=== PATIENT | male | born 1935 | race Caucasian/White ===

== ENCOUNTER → 2017-08-10 | Outpatient (CLI) | payer MEDICARE, OTHER ==
[~2017-08-10] MED LIST: ALPR.25 PO; ALPR.5 PO; ASPI81CH PO; Augmentin 875-1 EACH PO; CARV3.125 PO; CYCL10 PO; FENT50TP TOP; FENT75TP TOP; HYDACE10B PO; LIDO700A20 TOP; METPRE4DP PO; NEBI5 PO; Norco 10-325 T1 EACH PO; PRAV20 PO; SOMA250 MG; Stool Softener240 MG PO; WARF2 PO; WARF3 PO; WARF5 PO
[2017-08-10 10:25] LABS: BASOPHILS ABSOLUTE AUTO 0.07 K/mm3 (0.00-0.23); BASOPHILS PERCENT AUTO 1 % (0-2); EOSINOPHILS ABSOLUTE AUTO 0.16 K/mm3 (0.00-0.68); EOSINOPHILS PERCENT AUTO 2 % (0-6); Hematocrit 51.2 % (37.0-53.0); Hemoglobin 17.9 g/dL (13.5-17.5); IMMATURE GRAN ABSOLUTE AUTO 0.04 K/mm3 (0.00-0.10); IMMATURE GRAN PERCENT AUTO 0 % (0-1); LYMPHOCYTES ABSOLUTE AUTO 1.89 K/mm3 (0.84-5.20); LYMPHOCYTES PERCENT AUTO 20 % (21-46); MONOCYTES ABSOLUTE AUTO 0.93 K/mm3 (0.16-1.47); MONOCYTES PERCENT AUTO 10 % (4-13); Mean Corpuscular HGB 30.3 pg (26.0-34.0); Mean Corpuscular Volume 87 fL (80-100); Mean Platelet Volume 11.5 fL (9.1-12.4); NEUTROPHILS ABSOLUTE AUTO 6.61 K/mm3 (1.96-9.15); NEUTROPHILS PERCENT AUTO 68 % (41-73); Platelet Count 141 K/mm3 (150-400); RDW Coefficient Variation 14.3 % (11.7-14.2); RDW Standard Deviation 45.6 fL (35.1-46.3); Red Blood Cell Count 5.91 M/mm3 (4.30-5.90)
[2017-08-10 12:06] LABS: Anion Gap 8 mmol/L (6-16); Blood Urea Nitrogen 15 mg/dL (8-24); Bun/Creatinine Ratio 13.4 (12.0-20.0); CO2, Blood 29 mmol/L (21-32); Calcium, Blood 9.5 mg/dL (8.5-10.1); Chloride, Blood 102 mmol/L (98-108); Creatinine, Blood 1.12 mg/dL (0.60-1.20); Glomerular Filtration Rate >60 (60-); Glucose, Blood 116 mg/dL (70-99); Potassium, Blood 4.5 mmol/L (3.5-5.5); Sodium, Blood 139 mmol/L (136-145)
== END ==
LOC: LAB SHORT 10:20 → LAB EV 10:20
PROVIDERS: Physician Assistant Surgical
DX: R42 Dizziness and giddiness (principal)
CPT/HCPCS: 80048; 85025

== ENCOUNTER 2018-04-01 07:07 | Inpatient (IN) | payer MEDICARE, OTHER ==
[2018-03-31 11:02] LABS: International Normalized Ratio 1.25; Prothrombin Time Results 12.7 Sec (9.7-11.5)
[~2018-04-01] VITALS: Ht 180.3 cm; Wt 95.2 kg
[~2018-04-01 07:07] MED LIST changes: +GABA300 PO; +OXYC5 PO; +Zoloft100 MG PO
[2018-04-01] MEDS ORDERED: ENOX100I SC (08:52)
[2018-04-01 10:15] LABS: International Normalized Ratio 1.2; Prothrombin Time Results 12.2 Sec (9.7-11.5)
[2018-04-02 05:16] LABS: BASOPHILS ABSOLUTE AUTO 0.04 K/mm3 (0.00-0.23); BASOPHILS PERCENT AUTO 0 % (0-2); EOSINOPHILS ABSOLUTE AUTO 0.21 K/mm3 (0.00-0.68); EOSINOPHILS PERCENT AUTO 2 % (0-6); Hematocrit 38.7 % (37.0-53.0); Hemoglobin 12.6 g/dL (13.5-17.5); IMMATURE GRAN ABSOLUTE AUTO 0.03 K/mm3 (0.00-0.10); IMMATURE GRAN PERCENT AUTO 0 % (0-1); LYMPHOCYTES ABSOLUTE AUTO 1.48 K/mm3 (0.84-5.20); LYMPHOCYTES PERCENT AUTO 14 % (21-46); MONOCYTES ABSOLUTE AUTO 1.13 K/mm3 (0.16-1.47); MONOCYTES PERCENT AUTO 11 % (4-13); Mean Corpuscular HGB 29.2 pg (26.0-34.0); Mean Corpuscular HGB Conc 32.6 g/dL (31.5-36.5); Mean Corpuscular Volume 90 fL (80-100); NEUTROPHILS ABSOLUTE AUTO 7.63 K/mm3 (1.96-9.15); NEUTROPHILS PERCENT AUTO 73 % (41-73); Platelet Count 107 K/mm3 (150-400); RDW Coefficient Variation 14.7 % (11.7-14.2); RDW Standard Deviation 48.8 fL (35.1-46.3); Red Blood Cell Count 4.31 M/mm3 (4.30-5.90); White Blood Cell Count 10.52 K/mm3 (4.00-11.30)
[2018-04-02 05:32] LABS: Anion Gap 7 mmol/L (6-16); Blood Urea Nitrogen 17 mg/dL (8-24); Bun/Creatinine Ratio 17.7 (12.0-20.0); CO2, Blood 27 mmol/L (21-32); Calcium, Blood 8.5 mg/dL (8.5-10.1); Chloride, Blood 109 mmol/L (98-108); Creatinine, Blood 0.96 mg/dL (0.60-1.20); Glomerular Filtration Rate >60 (60-); Glucose, Blood 90 mg/dL (70-99); Magnesium, Blood 1.8 mg/dL (1.6-2.4); Potassium, Blood 4.2 mmol/L (3.5-5.5); Sodium, Blood 143 mmol/L (136-145)
[2018-04-03 06:00] LABS: International Normalized Ratio 1.12; Prothrombin Time Results 11.5 Sec (9.7-11.5)
[2018-04-04 06:08] LABS: International Normalized Ratio 1.23; Prothrombin Time Results 12.5 Sec (9.7-11.5)
== END 2018-04-04 15:20 | disposition home or self-care (01) | DRG 470 ==
LOC: ORSCMMR 07:07 → PRE IP 10:30 → ORSCMMR 10:30 → PRE IP 10:45 → EDSTATUS 10:45 → ORSCMMR 13:25 → SURS 13:25
PROVIDERS: Anesthesiology; Orthopaedic Surgery
PROC: 0SRD0J9 Replacement of Left Knee Joint with Synthetic Substitute, Cemented, Open Approach (ICD-10-PCS; principal; 2018-04-01 10:30)
DX: M17.12 Unilateral primary osteoarthritis, left knee (principal); J44.9 Chronic obstructive pulmonary disease, unspecified; I11.0 Hypertensive heart disease with heart failure; I50.9 Heart failure, unspecified; E78.5 Hyperlipidemia, unspecified; D45 Polycythemia vera; Z79.01 Long term (current) use of anticoagulants; Z79.82 Long term (current) use of aspirin; Z79.899 Other long term (current) drug therapy; Z87.891 Personal history of nicotine dependence; Z95.1 Presence of aortocoronary bypass graft; Z95.2 Presence of prosthetic heart valve
CPT/HCPCS: 36415; 73560-LT; 80048; 83735; 85025; 85610; 85730; 88300; 97110; 97116; 97161; 97530; C1713; C1776; G8978; G8979; G8980; J0171; J0690; J0735; J1650; J1885; J2250; J2795; J3010; J7120

== ENCOUNTER 2019-06-13 10:52 | Emergency (ER) | payer MEDICARE, OTHER ==
[~2019-06-13] VITALS: Ht 175.3 cm; Wt 97.5 kg
[~2019-06-13 10:52] MED LIST changes: +ENOX100I SC
[2019-06-13 11:38] LABS: BASOPHILS ABSOLUTE AUTO 0.04 K/mm3 (0.00-0.23); BASOPHILS PERCENT AUTO 0 % (0-2); EOSINOPHILS ABSOLUTE AUTO 0.15 K/mm3 (0.00-0.68); EOSINOPHILS PERCENT AUTO 2 % (0-6); Hematocrit 44.6 % (37.0-53.0); IMMATURE GRAN ABSOLUTE AUTO 0.02 K/mm3 (0.00-0.10); IMMATURE GRAN PERCENT AUTO 0 % (0-1); LYMPHOCYTES ABSOLUTE AUTO 1.52 K/mm3 (0.84-5.20); LYMPHOCYTES PERCENT AUTO 15 % (21-46); MONOCYTES ABSOLUTE AUTO 1.48 K/mm3 (0.16-1.47); MONOCYTES PERCENT AUTO 15 % (4-13); Mean Corpuscular HGB 30.4 pg (26.0-34.0); Mean Corpuscular HGB Conc 33.6 g/dL (31.5-36.5); Mean Corpuscular Volume 91 fL (80-100); Mean Platelet Volume 12.2 fL (9.1-12.4); NEUTROPHILS ABSOLUTE AUTO 6.82 K/mm3 (1.96-9.15); NEUTROPHILS PERCENT AUTO 68 % (41-73); Platelet Count 115 K/mm3 (150-400); RDW Coefficient Variation 13.9 % (11.7-14.2); RDW Standard Deviation 46.4 fL (35.1-46.3); Red Blood Cell Count 4.93 M/mm3 (4.30-5.90); White Blood Cell Count 10.03 K/mm3 (4.00-11.30)
[2019-06-13 11:56] LABS: International Normalized Ratio 2.66; Prothrombin Time Results 25.8 Sec (9.7-11.5)
[2019-06-13 12:04] LABS: Alanine Aminotransfer (ALT/SGP 24 U/L (12-78); Albumin, Blood 3.7 g/dL (3.4-5.0); Albumin/Globulin Ratio 0.9 (0.8-1.8); Alk Phos 95 U/L (50-136); Anion Gap 5 mmol/L (6-16); Aspartate Aminotrans (AST/SGOT 24 U/L (12-37); Bilirubin, Total 0.8 mg/dL (0.1-1.0); Blood Urea Nitrogen 15 mg/dL (8-24); Bun/Creatinine Ratio 21.5 (12.0-20.0); CO2, Blood 28 mmol/L (21-32); Calcium, Blood 9.4 mg/dL (8.5-10.1); Chloride, Blood 107 mmol/L (98-108); Globulin, Blood 3.9 g/dL (2.2-4.0); Glomerular Filtration Rate >60 (60-); Glucose, Blood 103 mg/dL (70-99); Potassium, Blood 4.1 mmol/L (3.5-5.5); Sodium, Blood 140 mmol/L (136-145); Total Protein, Blood 7.6 g/dL (6.4-8.2); Troponin I <0.015 ng/mL (0.000-0.040)
[2019-06-13] MEDS ORDERED: Robaxin-750750 MG PO (13:31)
== END 2019-06-13 14:00 | disposition home or self-care (01) ==
LOC: ER 10:52
PROVIDERS: Physician Assistant
DX: S16.1XXA Strain of muscle, fascia and tendon at neck level, initial encounter (principal); M50.10 Cervical disc disorder with radiculopathy, unspecified cervical region; I25.2 Old myocardial infarction; I10 Essential (primary) hypertension; Z87.891 Personal history of nicotine dependence; Z79.899 Other long term (current) drug therapy; X58.XXXA Exposure to other specified factors, initial encounter
CPT/HCPCS: 36415; 70450; 71046; 72040; 80053; 83880; 84484; 85025; 85610; 93005; 93010; 99284-25

== ENCOUNTER 2019-11-13 08:12 | Day surgery (SDC) | payer MEDICARE, OTHER ==
[~2019-11-13] VITALS: Ht 175.3 cm; Wt 96.3 kg
[~2019-11-13 08:12] MED LIST changes: +BACL10 PO; +CLOP75 PO; +OXYC15ER PO; +Pravachol40 MG PO; +Robaxin-750750 MG PO; +SERT25 PO
--- NOTE | 2019-11-13 16:57 | NUR ---
discharge gone over with pt, pt verbalizes understanding. both sites stable, left pedal and right groin. instructions given on what to do if bleeding should occur. saline lock out with catheter intact. pt to private vehicle per w/c with one staff.
== END 2019-11-13 23:07 | disposition home or self-care (01) ==
LOC: MHTC 08:12
DX: I70.212 Atherosclerosis of native arteries of extremities with intermittent claudication, left leg (principal)
CPT/HCPCS: 37228; 37232; 75710; 75716; 75774; 76937; 85347; 99152; 99153; C1725; C1760; C1769; C1887; C1894; J1644; J2250; J3010; J7030; Q9967

== ENCOUNTER 2020-04-20 09:55 | Inpatient (IN) | payer MEDICARE, OTHER ==
[~2020-04-20] VITALS: Ht 182.9 cm; Wt 94.5 kg
[~2020-04-20 09:55] MED LIST changes: +Aspir 8181 MG PO; +CEPH500 PO; -CLOP75 PO; -WARF2 PO; +WARF4 PO
[2020-04-20] MEDS ORDERED: NEBI5 PO (10:10)
[2020-04-20] MEDS ORDERED: LOSARTAN POTASS25 M2 PO (10:10)
[2020-04-20] MEDS ORDERED: ROXICODONE15 MG PO (10:10)
[2020-04-20] MEDS ORDERED: PRAVACHOL20 MG PO (10:11)
[2020-04-20 11:17] LABS: BASOPHILS ABSOLUTE AUTO 0.09 K/mm3 (0.00-0.23); BASOPHILS PERCENT AUTO 1 % (0-2); EOSINOPHILS ABSOLUTE AUTO 0.47 K/mm3 (0.00-0.68); EOSINOPHILS PERCENT AUTO 4 % (0-6); Hematocrit 44.4 % (37.0-53.0); Hemoglobin 14.6 g/dL (13.5-17.5); IMMATURE GRAN ABSOLUTE AUTO 0.11 K/mm3 (0.00-0.10); IMMATURE GRAN PERCENT AUTO 1 % (0-1); LYMPHOCYTES PERCENT AUTO 15 % (21-46); MONOCYTES ABSOLUTE AUTO 1.49 K/mm3 (0.16-1.47); MONOCYTES PERCENT AUTO 14 % (4-13); Mean Corpuscular HGB 29.1 pg (26.0-34.0); Mean Corpuscular HGB Conc 32.9 g/dL (31.5-36.5); Mean Corpuscular Volume 88 fL (80-100); NEUTROPHILS PERCENT AUTO 65 % (41-73); Platelet Count 144 K/mm3 (150-400); RDW Standard Deviation 48.8 fL (35.1-46.3); Red Blood Cell Count 5.02 M/mm3 (4.30-5.90); White Blood Cell Count 10.76 K/mm3 (4.00-11.30)
[2020-04-20 11:30] LABS: International Normalized Ratio 2.87; Prothrombin Time Results 28.9 Sec (9.7-11.5)
[2020-04-20 11:34] LABS: Alanine Aminotransfer (ALT/SGP 22 U/L (12-78); Albumin, Blood 3.4 g/dL (3.4-5.0); Alk Phos 78 U/L (50-136); Anion Gap 5 mmol/L (6-16); Aspartate Aminotrans (AST/SGOT 20 U/L (12-37); Bilirubin, Total 0.5 mg/dL (0.1-1.0); Blood Urea Nitrogen 23 mg/dL (8-24); Bun/Creatinine Ratio 28.3 (12.0-20.0); CO2, Blood 28 mmol/L (21-32); Calcium, Blood 8.9 mg/dL (8.5-10.1); Chloride, Blood 109 mmol/L (98-108); Creatinine, Blood 0.81 mg/dL (0.60-1.20); Globulin, Blood 3.3 g/dL (2.2-4.0); Glomerular Filtration Rate >60 (60-); Glucose, Blood 109 mg/dL (70-99); Potassium, Blood 4.6 mmol/L (3.5-5.5); Sodium, Blood 142 mmol/L (136-145); Total Protein, Blood 6.7 g/dL (6.4-8.2)
[2020-04-20] MEDS ORDERED: EZETIMIBE10 M3 PO (12:54)
[2020-04-20] MEDS ORDERED: Prednisone10 MG (12:54)
[2020-04-20] MEDS ORDERED: CLOP75 PO (12:57)
[2020-04-20] MEDS ORDERED: DULOXETINE HCL60 M1 PO (12:57)
[2020-04-20] MEDS ORDERED: DOCU100 PO (13:29)
--- NOTE | 2020-04-20 17:41 | NUR ---
SUMMARY BEAVER, MEDICATED WITH IV MORPHINE FOR PAIN, DENIES ANY OTHER DISCOMFORT, PT'S DAUGHTER WAS HERE, TOOK PT'S MEDS AND [facility] HOME, ORIENTED TO ROOM AND CALL SYSTEM, NO ACUTE CHANGES THIS SHIFT.
[2020-04-21 04:43] LABS: BASOPHILS ABSOLUTE AUTO 0.08 K/mm3 (0.00-0.23); BASOPHILS PERCENT AUTO 1 % (0-2); EOSINOPHILS ABSOLUTE AUTO 0.43 K/mm3 (0.00-0.68); EOSINOPHILS PERCENT AUTO 4 % (0-6); Hematocrit 44.7 % (37.0-53.0); Hemoglobin 14.4 g/dL (13.5-17.5); IMMATURE GRAN ABSOLUTE AUTO 0.11 K/mm3 (0.00-0.10); IMMATURE GRAN PERCENT AUTO 1 % (0-1); LYMPHOCYTES ABSOLUTE AUTO 2.36 K/mm3 (0.84-5.20); LYMPHOCYTES PERCENT AUTO 21 % (21-46); MONOCYTES ABSOLUTE AUTO 1.68 K/mm3 (0.16-1.47); MONOCYTES PERCENT AUTO 15 % (4-13); Mean Corpuscular HGB 28.9 pg (26.0-34.0); Mean Corpuscular HGB Conc 32.2 g/dL (31.5-36.5); Mean Corpuscular Volume 90 fL (80-100); Mean Platelet Volume 10.7 fL (9.1-12.4); NEUTROPHILS ABSOLUTE AUTO 6.59 K/mm3 (1.96-9.15); NEUTROPHILS PERCENT AUTO 59 % (41-73); Platelet Count 152 K/mm3 (150-400); RDW Coefficient Variation 14.9 % (11.7-14.2); RDW Standard Deviation 48.2 fL (35.1-46.3); Red Blood Cell Count 4.98 M/mm3 (4.30-5.90); White Blood Cell Count 11.25 K/mm3 (4.00-11.30)
[2020-04-21 04:54] LABS: Anion Gap 6 mmol/L (6-16); Blood Urea Nitrogen 24 mg/dL (8-24); Bun/Creatinine Ratio 28.8 (12.0-20.0); CO2, Blood 29 mmol/L (21-32); Chloride, Blood 102 mmol/L (98-108); Creatinine, Blood 0.83 mg/dL (0.60-1.20); Glomerular Filtration Rate >60 (60-); Glucose, Blood 109 mg/dL (70-99); Potassium, Blood 4.7 mmol/L (3.5-5.5); Sodium, Blood 137 mmol/L (136-145)
[2020-04-21 04:56] LABS: International Normalized Ratio 3.24; Prothrombin Time Results 32.4 Sec (9.7-11.5)
--- NOTE | 2020-04-21 05:34 | NUR ---
SHIFT SUMMARY: LEFT HIP FX A&OX4. VITALS ARE WNL AND IS ON ROOM AIR. HE HAS BEEN NPO SINCE MIDNIGHT. HE HAS BEEN ABLE TO VOID AND WAS ADEQUATELY EATING BEFORE MIDNIGHT. PAIN IS MANAGED BY 1 CARMEN. HE IS VERY [place] AND NEEDS TO BE TALKED TO DIRECTLY FACE TO FACE FOR HIM TO UNDERSTAND. CALL LIGHT IS WITHIN REACH AND BED IS AT LOWEST POINT. HE IS ON TELE AND WAS AT [facility]HY[facility] @ 73 EARLY IN THE SHIFT. PLAN IS FOR HIM TO GO TO SURGERY TODAY TO FIX HIS HIP. WILL CONTINUE TO MONITOR UNTIL DAYSHIFT NURSE COMES TO RECIEVE REPORT.
--- NOTE | 2020-04-21 13:19 | NUR ---
PT RESTING QUIETLY. RESP E/U. ALARM IN PLACE.
--- NOTE | 2020-04-21 17:01 | NUR ---
SHIFT SUMMARY L HIP FX, A/O X4, INTERMITTENTLY SLEEPY BUT EASY TO WAKE, VSS, PAIN MANAGED PER EMAR, DIET CHANGED TO REGULAR DUE TO SURGERY BEING HELD ANOTHER DAY TO ALLOW INR TO COME DOWN CLOSER TO 2.0. TOLERATING PO, VOIDING WELL, PULLED IV IN L HAND WHILE SLEEPING, NEW IV INSERTED IN R FOREARM TOLERATED WELL. SURGEON TO CHANGE TO DR ALFORD TOMORROW, FAMILY MEMBER IN ROOM WHEN DR PATTERSON DISCUSSED PLAN W/ PT. CALL LIGHT IN REACH, WILL CONTINUE TO MONITOR AND REPORT TO ONCOMING NOC RN.
[2020-04-22 04:26] LABS: International Normalized Ratio 1.66; Prothrombin Time Results 17.3 Sec (9.7-11.5)
--- NOTE | 2020-04-22 05:01 | NUR ---
SHIFT SUMMARY PT A/OX3-4. FORGETFUL/IMPULSIVE AT TIMES. BED ALARM ON DURING THE SHIFT - PT HAS SET OFF BED ALARM MULTIPLE TIMES ATTEMPTING TO GET OUT OF BED. PT HAS BEEN NPO SINCE MIDNIGHT FOR SURGERY TODAY. IV FLUIDS INFUSING PER ORDERS. PAIN MANAGED WITH PO PAIN MED AND IV MORPHINE FOR BREAKTHROUGH PAIN. PT RESTING IN BED AT THIS TIME WITH CALL LIGHT IN REACH.
--- NOTE | 2020-04-22 15:03 | NUR ---
INTO SDS FROM SURGICAL FLOOR.ADMISSION TO UNIT STARTED. Patient confirms NPO status and agrees with scheduled surgery.DAUGHTER AT BEDSIDE
--- NOTE | 2020-04-22 17:12 | NUR ---
SHIFT SUMMARY L FEM FX, A/O X 4, VSS, NPO FOR SURGERY, VOIDING WELL, PAIN CONTROLLED PER EMAR, DAY SURGERY PICKUD UP PT @ 1503. WILL CONTINUE TO MONITOR AND REPORT TO ONCOMING NOC RN.
--- NOTE | 2020-04-22 18:39 | NUR ---
PT RETURNED TO ROOM FROM PACU, PT STABLE, P/O VITALS STARTED, FAMILY UPDATED
--- NOTE | 2020-04-23 01:19 | NUR ---
IV PULLED ABOUT 0100 PT FOUND TO HAVE DISCONNECTED IV FROM IV HUB. BLOOD ON BED AND POOLING ON FLOOR. IV HAD BEEN CONNECTED WHEN ABX WERE GIVEN, AROUND 2330. LINENS CHANGED, PT CLEANED. PHYSICIAN NOTIFIED - H&H ORDERED FOR AM LABS. VS CONSISTENT WITH PREVIOUS VS.
[2020-04-23 03:17] LABS: Hemoglobin 14.6 g/dL (13.5-17.5)
--- NOTE | 2020-04-23 03:29 | NUR ---
PT TRANSFERRED TO ROOM 215 AT THIS TIME
--- NOTE | 2020-04-23 04:28 | NUR ---
SHIFT SUMMARY PT ALERT, ORIENTED X3. FORGETFUL/IMPULSIVE AT TIMES. PAIN MANAGED WITH PO AND IV PAIN MEDICATION. PT RESPOSITIONED MULT TIMES DURING THE SHIFT. TELE SHOWS SR OVERNIGHT. PT DISCONNECTED IV DURING THE NIGHT, SOMETIME BETWEEN 2330 AND 0045, AND LOST LARGE AMOUNT OF BLOOD. SEE PREVIOUS NOTE. H&H THIS MORNING UNCHANGED FROM YESTERDAY MORNING. NEW IV PLACED ON R ARM AND WRAPPED WELL WITH COBAN AND SWAPNA. PT MOVED FROM ROOM 223 TO ROOM 215 BED ALARM WAS SET OFF MUTIPLE TIMES. PT TOLERATING PO INTAKE W/O NAUSEA. VOIDING USING URINAL. CALL LIGHT IN REACH.
--- NOTE | 2020-04-23 16:25 | NUR ---
SHIFT SUMMARY PATIENT UP TO CHAIR WITH PT TODAY. PAIN TOLERABLE WITH PO PAIN MEDS. SLEPT WELL AFTER LUNCH. VSS. L HIP DRESSING D&I. CIRC CHECKS WNL. DAUGHTER IN TO SEE. PLAN FOR D/C TO SNF TOMORROW.
[2020-04-24 04:19] LABS: International Normalized Ratio 1.18; Prothrombin Time Results 12.5 Sec (9.7-11.5)
--- NOTE | 2020-04-24 06:02 | NUR ---
CARE OF THIS PT WAS TRANSFERRED TO [place] @ 1999.WITH REPORT, I WAS ADVISED PT TO BE RECEIVING CARMEN 15MG PO REPORTED THIS IS PTS BASELINE DOSE.PT HAS APPEARED SLEEPING AT TIMES AND NOT OPENING EYES WHEN INITIALLY SPOKEN TO.SLOW TO OPEN EYES, BUT STATES HAS NOT BEEN SLEEPING.PT ORDERS FOR CARMEN ARE Q 4 HR PRN BUT PT DISAGREES STATING THEY ARE ORDERED Q3 HRS .I DISCUSSED ORDER WITH PT WELL SHOWING HIM ORDERS.PT ALSO VERB ADVISED ME HE SLEPT WELL AFTER THE RESTORIL.WHEN ENTERED PT ROOM TO MEDICATE FOR PAIN PER PRIOR REQUEST, PT APPEARS SLEEPING. SPOKE HIS NAME WITHOUT RESPONSE. PT RESPONDED TO TOUCH OF FOOT.CONFIMED HE WANTED CARMEN 15 MG PO.RESP APPEAR EVEN AND UNLABORED.
--- NOTE | 2020-04-24 13:40 | NUR ---
REPORT TO AMIE MUNIZ ATTEMPTED TO CALL IN FOR REPORT. I SPOKE TO THE STAFF AND STATES THAT NURSE IS UNAVAILABLE AT THIS TIME. SHE WILL HAVE A NURSE CALL BACK TO OUR UNIT. NOTIFIED THAT PT LEAVES AT 1400 IN THE HOSPITAL W/ TRANSPORT. WAITING FOR A CALL BACK.
--- NOTE | 2020-04-24 14:15 | NUR ---
REPORT TO [facility] RECIEVED CALL BACK FROM ELAN FROM [facility] AT 1210. NOTIFIED THAT PT IS A0X4. PT DENIES SOB, CHEST PAIN/PRESSURE, NUMBNESS AND NO TINGLING SENSATION. PT HAS L FEMUR FX, S/P PINNING ON L HIP W/ CDI AQUACEL DRESSING. 3 EXTRA DRESSING, HAND CARRY SCRIPT FOR OXY, AND DISCHARGE NOTES AT [facility] FOR PATIENT TO TAKE HOME/SNF. PT LLE IS TOETOUCH WT BEARING. I ALSO MENTIONED WARFARIN RESUMED LAST NIGHT, TO MONITOR INR. PT TOLERATING PO INTAKE, DENIES NAUSEA AND VOMITING. PT'S LAST BM, YESTERDAY X1. PT TAKES OXYCODONE 15MG EVERY 4 HRS FOR PAIN NEEDED. VSS. PT WEARING HIS DENTURES. 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 BELONGINGS ON A PLASTIC BAG.
--- NOTE | 2020-04-24 15:24 | NUR ---
LOW TEMPURATURE TEMP CHECKED BEFORE SCHEDULED DISCARGE TO [facility]. TEMP SUB NORMAL AT 95.4 TEMPORAL. ALSO CHECKED AXILLARY AND ORAL BOTH TEMPS SUB NORMAL. TEMPORTAL THERMOMETER WAS CLEANED BEFORE USE. PT IS SLIGHTLY DIAPHORETIC, PALE AND COOL TO THE TOUCH. OTHER VSS BP 124/69, HR 75, RR 16 AND O2 SATURATION 93% ON RA. PT PROVIDED WITH WARM BLANKETS, HOT FLUIDS AND FOOD, THERMOSTAT ALSO INCREASED. DR. MCDONOUGH NOTIFIED HE REQUESTED PT BE PROVIDED WITH WARM BLANKETS AND ASSESS TEMP IN APPROXIMATLEY 1/2 HOUR.
--- NOTE | 2020-04-24 16:30 | NUR ---
TEMP RE-CHECK TEMPURATURE WAS RE-EVALUATED AT APPROXIMATELY 1605 AND IS 98.2 AFTER PT WAS WARMED. OTHER VSS BP 130/65, HR 82, 94% ON RA, RESP RATE 16. PT IS DIAPHORETIC AT TIMES, HE DENIES CHEST PAIN AND SHORTNESS OF BREATH. DR. MCDONOUGH NOTIFIED OF PT'S STATUS. [facility] NOTIFIED OF PT'S TEMPERATURES AND INTERVENTIONS TO IMPROVE TEMP. THIS RN SPOKE WITH JULIET AT [facility], SHE REPORTED SHE WOULD NOTIFY THE RN.
--- NOTE | 2020-04-24 16:46 | NUR ---
DISCHARGE SUMMARY PT DISCHARGE VIA WHEELCHAIR WITH [facility] AT 1645. PT IS ALERT AND ORIENTED X4. PT IS NOT DIAPHORETIC PRIOR TO DISCHARGE. PT DENIES CHEST PAIN/PRESSURE, SOB, NUMBNESS AND TINGLING SENSATION. PT TOLERATING PO INTAKE WELL. HE DENIES NAUSEA AND VOMITING. PT HAD A BM YESTERDAY. HE HAS PASSING FLATUS TODAY. PT 1 INCISION SITE ON LEFT HIP, AQUACEL DRESSING IS CDI. 3 EXTRA DRESSING WITH HAND CARRY SCRIPT FOR PAIN AND DISCHARGE PAPERWORK IN [place] FOR [facility]. PAIN MED IS WELL CONTROLLED BY 15MG OXY, LAST ADMINISTERED AT 1415 BY PO. PT HAS DENTURES ON, REPORTS GLASSESS AND HEARING AIDS WERE LEFT AT HOME. BELONGINGS WERE TAKEN BY HIS SON.
== END 2020-04-24 16:44 | DRG 482 ==
LOC: ER 09:55 → SURS 09:56 → ER 09:56 → SURS 09:56
PROVIDERS: Emergency Medicine; Family Medicine; Orthopaedic Surgery; ADMIT Internal Medicine
PROC: 0QSC34Z Reposition Left Lower Femur with Internal Fixation Device, Percutaneous Approach (ICD-10-PCS; principal; 2020-04-22 17:30)
DX: S72.012A Unspecified intracapsular fracture of left femur, initial encounter for closed fracture (principal); E78.5 Hyperlipidemia, unspecified; I25.10 Atherosclerotic heart disease of native coronary artery without angina pectoris; Z95.1 Presence of aortocoronary bypass graft; Z95.2 Presence of prosthetic heart valve; I11.0 Hypertensive heart disease with heart failure; I50.9 Heart failure, unspecified; Z79.01 Long term (current) use of anticoagulants; W11.XXXA Fall on and from ladder, initial encounter
CPT/HCPCS: 36415; 71045; 72100; 73502; 73700; 80048; 80053; 85014; 85018; 85025; 85610; 85730; 93005; 93010; 96374; 97110; 97162; 97166; 97530; 97535; 99285-25; A9270; C1713; C1769; G0378; J0330; J0690; J2270; J2795; J3010; J7120; U0003

== ENCOUNTER 2021-08-31 08:19 | Day surgery (SDC) | payer MEDICARE, OTHER ==
[~2021-08-31] VITALS: Ht 180.3 cm; Wt 99.0 kg
[~2021-08-31 08:19] MED LIST changes: +Acerola C500 MG PO; +CLOP75 PO; +DOCU100 PO; +DULOXETINE HCL60 M1 PO; +EZETIMIBE10 M3 PO; +LOSARTAN POTASS25 M2 PO; +NEBI10 PO; +PRAVACHOL20 MG PO; +Prednisone10 MG; +ROXICODONE15 MG PO; +TAMS.4ER PO
--- NOTE | 2021-08-31 13:55 | NUR ---
PT DRESSING SELF WITHOUT DIFF. R FEMORAL SITE REMAINS CLEAR. SOFT, NON- TENDER. NO BLEEDING OR HEMATOMA NOTED. VSS. NADN.
--- NOTE | 2021-08-31 14:20 | NUR ---
PT VERBALIZES UNDERSTANDING WRITTEN AND VERBAL ORDERS. PT DENIES QUESTIONS. VSS. NADN. PT IV DC'D. CATH INTACT. PRESSURE DSG APPLIED. R FEMORAL SITE REMAINS STABLE. PT DC TO HOME VIA WC BY DTR IN LAW./
== END 2021-08-31 14:20 | disposition home or self-care (01) ==
LOC: MHTC 08:19
DX: I70.213 Atherosclerosis of native arteries of extremities with intermittent claudication, bilateral legs (principal)
CPT/HCPCS: 76937; 99152; 99153; A9270; C1725; C1760; C1769; C1887; C1894; J1644; J2250; J3010; J7030; J7050; Q9967

== ENCOUNTER 2021-09-27 06:34 | Day surgery (SDC) | payer MEDICARE, OTHER ==
[~2021-09-27] VITALS: Ht 177.8 cm; Wt 100.0 kg
--- NOTE | 2021-09-27 11:30 | NUR ---
PT UP AND BACK FROM BATHROOM, GROIN SITE STABLE. PT DRESSED PER SELF, R GROIN SITE REMAINS STABLE. SALINE LOCK REMOVED WITH CATHETER INTACT. DISCHARGE INSTRUCTIONS REVIEWED WITH PT, VERBALIZES UNDERSTANDING OF INSTRUCTIONS. MARQUISE CALLED AND WILL BE HERE IN 15 MINUTES.
--- NOTE | 2021-09-27 11:50 | NUR ---
PT TO PRIVATE VEHICLE PER W/C WITH ONE STAFF.
== END 2021-09-27 12:13 | disposition home or self-care (01) ==
LOC: MHTC 06:34
DX: I70.213 Atherosclerosis of native arteries of extremities with intermittent claudication, bilateral legs (principal); I25.10 Atherosclerotic heart disease of native coronary artery without angina pectoris; J44.9 Chronic obstructive pulmonary disease, unspecified; I10 Essential (primary) hypertension; Z88.8 Allergy status to other drugs, medicaments and biological substances; M19.90 Unspecified osteoarthritis, unspecified site; E78.5 Hyperlipidemia, unspecified; Z95.2 Presence of prosthetic heart valve; Z96.653 Presence of artificial knee joint, bilateral
CPT/HCPCS: 37224; 37228; 75710; 76937; 99152; 99153; C1725; C1760; C1769; C1887; C1894; C2623; J1644; J2250; J3010; J7030; J7050; Q9967

== ENCOUNTER 2022-04-11 08:54 | Emergency (ER) | payer MEDICARE, OTHER ==
[~2022-04-11] VITALS: Ht 180.3 cm; Wt 97.5 kg
== END 2022-04-11 09:57 | disposition home or self-care (01) ==
LOC: ER 08:54
DX: R04.0 Epistaxis (principal); I11.0 Hypertensive heart disease with heart failure; I50.9 Heart failure, unspecified; I25.10 Atherosclerotic heart disease of native coronary artery without angina pectoris; E78.5 Hyperlipidemia, unspecified; Z79.01 Long term (current) use of anticoagulants; Z79.899 Other long term (current) drug therapy; Z88.8 Allergy status to other drugs, medicaments and biological substances; Z95.1 Presence of aortocoronary bypass graft; Z95.2 Presence of prosthetic heart valve
CPT/HCPCS: 30903; 99283-25

== ENCOUNTER 2022-04-12 11:04 | Emergency (ER) | payer MEDICARE, OTHER ==
[~2022-04-12] VITALS: Ht 180.3 cm; Wt 97.5 kg
[2022-04-12 12:35] LABS: International Normalized Ratio 4.41
== END 2022-04-12 13:19 | disposition home or self-care (01) ==
LOC: ER 11:04
PROVIDERS: Physician Assistant
DX: R04.0 Epistaxis (principal); R79.1 Abnormal coagulation profile; Z88.8 Allergy status to other drugs, medicaments and biological substances; Z79.01 Long term (current) use of anticoagulants; Z79.82 Long term (current) use of aspirin; Z79.899 Other long term (current) drug therapy
CPT/HCPCS: 30903; 36415; 85610; 99282-25

== ENCOUNTER 2022-12-05 11:56 | Emergency (ER) | payer OTHER ==
[~2022-12-05] VITALS: Ht 177.8 cm; Wt 99.8 kg
[2022-12-05 12:41] LABS: BASOPHILS ABSOLUTE AUTO 0.09 K/mm3 (0.00-0.23); BASOPHILS PERCENT AUTO 1 % (0-2); EOSINOPHILS ABSOLUTE AUTO 0.36 K/mm3 (0.00-0.68); EOSINOPHILS PERCENT AUTO 3 % (0-6); Hematocrit 41.6 % (37.0-53.0); Hemoglobin 14.1 g/dL (13.5-17.5); IMMATURE GRAN ABSOLUTE AUTO 0.07 K/mm3 (0.00-0.10); IMMATURE GRAN PERCENT AUTO 1 % (0-1); LYMPHOCYTES ABSOLUTE AUTO 1.88 K/mm3 (0.84-5.20); LYMPHOCYTES PERCENT AUTO 14 % (21-46); MONOCYTES ABSOLUTE AUTO 1.81 K/mm3 (0.16-1.47); MONOCYTES PERCENT AUTO 13 % (4-13); Mean Corpuscular HGB 30.2 pg (26.0-34.0); Mean Corpuscular HGB Conc 33.9 g/dL (31.5-36.5); Mean Corpuscular Volume 89 fL (80-100); Mean Platelet Volume 11.7 fL (9.1-12.4); NEUTROPHILS ABSOLUTE AUTO 9.36 K/mm3 (1.96-9.15); NEUTROPHILS PERCENT AUTO 69 % (41-73); Platelet Count 155 K/mm3 (150-400); RDW Coefficient Variation 14.7 % (11.7-14.2); Red Blood Cell Count 4.67 M/mm3 (4.30-5.90); White Blood Cell Count 13.57 K/mm3 (4.00-11.30)
[2022-12-05 12:50] LABS: Albumin, Blood 3.5 g/dL (3.4-5.0); Albumin/Globulin Ratio 0.9 (0.8-1.8); Bilirubin, Total 0.7 mg/dL (0.1-1.0); Bun/Creatinine Ratio 19.8 (12.0-20.0); Calcium, Blood 9.3 mg/dL (8.5-10.1); Creatinine, Blood 0.86 mg/dL (0.60-1.20); Globulin, Blood 3.7 g/dL (2.2-4.0); Total Protein, Blood 7.2 g/dL (6.4-8.2)
[2022-12-05] MEDS ORDERED: AZIT250 PO (13:28)
[2022-12-05] MEDS ORDERED: AMOCLA875 PO (13:28)
[2022-12-05 13:40] VITALS: BP 117/61
== END 2022-12-05 13:46 | disposition home or self-care (01) ==
LOC: ER 11:56
PROVIDERS: Physician Assistant
DX: J18.9 Pneumonia, unspecified organism (principal); I25.10 Atherosclerotic heart disease of native coronary artery without angina pectoris; I11.0 Hypertensive heart disease with heart failure; I50.9 Heart failure, unspecified; E78.5 Hyperlipidemia, unspecified; Z88.8 Allergy status to other drugs, medicaments and biological substances; Z79.01 Long term (current) use of anticoagulants; Z79.82 Long term (current) use of aspirin; Z79.899 Other long term (current) drug therapy
CPT/HCPCS: 71046; 80053; 83605; 83880; 84484; 85025

== ENCOUNTER 2024-01-04 20:54 | Inpatient (IN) | payer OTHER ==
[~2024-01-04] VITALS: Ht 182.9 cm; Wt 90.3 kg
[~2024-01-04 20:54] MED LIST changes: +AMOCLA875 PO; +AZIT250 PO; +CYMBALTA60 M1 PO; +FLOMAX0.4 MG PO; +FUROSEMIDE20 MG; +FUROSEMIDE40 MG PO; +JANTOVEN4 M2 PO; +K-Dur20 MEQ PO; +PRAVASTATIN SOD10 M1 PO; +SULTRIDS PO; +TRAZ50 PO; +WARFARIN PO
[2024-01-04 21:32] LABS: BASOPHILS PERCENT AUTO 1 % (0-2); EOSINOPHILS ABSOLUTE AUTO 0.04 K/mm3 (0.00-0.68); EOSINOPHILS PERCENT AUTO 0 % (0-6); Hematocrit 47.9 % (37.0-53.0); Hemoglobin 16.3 g/dL (13.5-17.5); IMMATURE GRAN ABSOLUTE AUTO 0.16 K/mm3 (0.00-0.10); IMMATURE GRAN PERCENT AUTO 1 % (0-1); LYMPHOCYTES ABSOLUTE AUTO 1.62 K/mm3 (0.84-5.20); LYMPHOCYTES PERCENT AUTO 8 % (21-46); MONOCYTES PERCENT AUTO 17 % (4-13); Mean Corpuscular HGB 30.6 pg (26.0-34.0); Mean Corpuscular Volume 90 fL (80-100); NEUTROPHILS ABSOLUTE AUTO 15.16 K/mm3 (1.96-9.15); NEUTROPHILS PERCENT AUTO 74 % (41-73); RDW Coefficient Variation 15.2 % (11.7-14.2); RDW Standard Deviation 49.8 fL (35.1-46.3); Red Blood Cell Count 5.32 M/mm3 (4.30-5.90); White Blood Cell Count 20.58 K/mm3 (4.00-11.30)
[2024-01-04 21:34] LABS: Mean Platelet Volume 11.4 fL (9.1-12.4); Platelet Count 120 K/mm3 (150-400)
[2024-01-04 21:44] LABS: Albumin, Blood 3.8 g/dL (3.4-5.0); Bilirubin, Total 1.3 mg/dL (0.1-1.0); Bun/Creatinine Ratio 19.8 (12.0-20.0); Calcium, Blood 9.1 mg/dL (8.5-10.1); Creatinine, Blood 1.06 mg/dL (0.60-1.20); Globulin, Blood 3.8 g/dL (2.2-4.0); Potassium, Blood 4.3 mmol/L (3.5-5.5); Total Protein, Blood 7.6 g/dL (6.4-8.2)
[2024-01-04] MEDS ORDERED: Morphine Sulfate 4 MG/1 ML Injection IV ONE (21:55)
[2024-01-04] MEDS ORDERED: Ondansetron HCl 2 MG / ML 2ML Vial IV ONE (21:55)
[2024-01-04] MEDS ORDERED: FentaNYL Citrate 50 MCG/ML 2 ML Injection IV PRN (22:30)
[2024-01-04] MEDS ORDERED: HYDROcodone 10-APAP 325 TAB PO PRN (22:30)
[2024-01-04] MEDS ORDERED: Acetaminophen 325 MG TABLET PO PRN (22:30)
[2024-01-04] MEDS ORDERED: Ondansetron HCl 2 MG / ML 2ML Vial IV PRN (22:35)
[2024-01-04] MEDS ORDERED: Naloxone HCl 0.4MG / ML 1ML Vial IV PRN (22:35)
[2024-01-04] MEDS ORDERED: Phytonadione 5 MG Tab PO ONE (23:00)
[2024-01-04] MEDS ORDERED: TraZODone HCl 100 MG Tab PO PRN (23:05)
[2024-01-04] MEDS ORDERED: OxyCODONE HCL 5 MG TAB PO PRN (23:05)
[2024-01-04 23:07] LABS: Anti-Xa UFH, PHA Monitoring <0.10 IU/mL; International Normalized Ratio 1.29; Prothrombin Time Results 13.5 Sec (9.7-11.5)
[2024-01-04] MEDS ORDERED: Lactated Ringer's 1,000 ML IV SCH (23:45)
[2024-01-05 00:17] LABS: Influenza A, PCR NEGATIVE (NEGATIVE); Influenza B, PCR NEGATIVE (NEGATIVE); Resp Syncytial Virus, PCR NEGATIVE (NEGATIVE); SARS-Cov-2 (COVID-19) PCR, MMC NEGATIVE (NEGATIVE)
[2024-01-05 00:25] VITALS: BP 139/84
[2024-01-05] MEDS ORDERED: Heparin Sodium,Porcine/0.5 NS 500 ML IV SCH (00:40)
[2024-01-05] MEDS ORDERED: Azithromycin 500 MG in NS 250 ML IV ONE (00:55)
[2024-01-05] MEDS ORDERED: PRAVASTATIN SOD40 MG PO (02:44)
[2024-01-05] MEDS ORDERED: EZETIMIBE10 M6 PO (02:44)
[2024-01-05 03:56] VITALS: BP 115/50
[2024-01-05 04:14] LABS: Source, Urine Foley catheter
[2024-01-05 04:16] LABS: Appearance, Urine Clear (Clear); Bilirubin, Urine Neg (Neg); Blood, Urine 4+ (Neg); Color, Urine Amber (P-Yellow); Glucose Qualitative, Urine Neg (Neg); Ketones, Urine Neg (Neg); Leukocyte Esterase, Urine Neg (Neg); Nitrite, Urine Neg (Neg); Protein, Urine 3+ (Neg); Specific Gravity, Urine 1.025 (1.003-1.022); Urobilinogen, Urine NORM (Normal)
[2024-01-05 04:22] LABS: Bacteria Few /hpf; Granular Casts 0-2 /lpf (0); Hyaline Casts 0-2 /lpf (0-2); Red Blood Cells, Urine 0-2 /hpf (0-2); Squamous Epithelial Cells Few /hpf (Few); White Blood Cells, Urine 0-2 /hpf (0-5)
--- NOTE | 2024-01-05 06:07 | NUR ---
END OF SHIFT SUMMARY NEW ADMIT RIGHT HIP FX. PT STATED HE FELL ATTEMPTING TO GO TO [facility]. IND AT BASELINE, LIVES ALONE. PT A&OX4, SPEECH DIFFICULT TO UNDERSTAND AT TIMES DUE TO UPPER AND LOWER DENTURES OUT. PT NPO. HEPARIN GTT STARTED PER ORDER. PT ATTEMPTED TO VOID SEVERAL TIMES, UNABLE. BLADDER SCAN 483. ORDERS RECD TO PLACE CROWE, 16FR COUDE INSERTED WITHOUT INCIDENT. PT REMAINS BEDREST. PENDING POSSBILE SX INTERVENTION TODAY. AFLUTTER ON TELE.
[2024-01-05 07:18] VITALS: BP 124/71
[2024-01-05] MEDS ORDERED: Potassium Chloride 20 MEQ TabCR PO SCH (08:00)
[2024-01-05 08:17] LABS: BASOPHILS ABSOLUTE AUTO 0.07 K/mm3 (0.00-0.23); BASOPHILS PERCENT AUTO 1 % (0-2); EOSINOPHILS ABSOLUTE AUTO 0.38 K/mm3 (0.00-0.68); EOSINOPHILS PERCENT AUTO 3 % (0-6); Hematocrit 41.8 % (37.0-53.0); Hemoglobin 14.3 g/dL (13.5-17.5); IMMATURE GRAN ABSOLUTE AUTO 0.06 K/mm3 (0.00-0.10); IMMATURE GRAN PERCENT AUTO 1 % (0-1); LYMPHOCYTES ABSOLUTE AUTO 1.71 K/mm3 (0.84-5.20); LYMPHOCYTES PERCENT AUTO 13 % (21-46); MONOCYTES ABSOLUTE AUTO 2.04 K/mm3 (0.16-1.47); MONOCYTES PERCENT AUTO 15 % (4-13); Mean Corpuscular HGB 30.8 pg (26.0-34.0); Mean Corpuscular HGB Conc 34.2 g/dL (31.5-36.5); Mean Corpuscular Volume 90 fL (80-100); Mean Platelet Volume 10.7 fL (9.1-12.4); NEUTROPHILS ABSOLUTE AUTO 9.03 K/mm3 (1.96-9.15); NEUTROPHILS PERCENT AUTO 68 % (41-73); Platelet Count 96 K/mm3 (150-400); RDW Coefficient Variation 15.2 % (11.7-14.2); Red Blood Cell Count 4.65 M/mm3 (4.30-5.90); White Blood Cell Count 13.29 K/mm3 (4.00-11.30)
[2024-01-05 08:44] LABS: Magnesium, Blood 2.3 mg/dL (1.6-2.4)
[2024-01-05 09:00] LABS: Albumin, Blood 3.2 g/dL (3.4-5.0); Bilirubin, Total 1.1 mg/dL (0.1-1.0); Bun/Creatinine Ratio 23.3 (12.0-20.0); Calcium, Blood 8.6 mg/dL (8.5-10.1); Creatinine, Blood 0.95 mg/dL (0.60-1.20); Globulin, Blood 3.2 g/dL (2.2-4.0); Potassium, Blood 3.9 mmol/L (3.5-5.5); Total Protein, Blood 6.4 g/dL (6.4-8.2)
[2024-01-05] MEDS ORDERED: Tamsulosin HCl 0.4 MG Cap PO SCH (09:00)
[2024-01-05] MEDS ORDERED: Furosemide 40 MG Tab PO SCH (09:00)
[2024-01-05] MEDS ORDERED: CefTRIAXone Sodium 1,000 MG in NS 100 ML IV SCH (09:00)
[2024-01-05] MEDS ORDERED: Docusate Sodium 100 MG Cap PO SCH (09:00)
[2024-01-05] MEDS ORDERED: DULoxetine HCL 60 MG Capsule DR PO SCH (09:00)
[2024-01-05] MEDS ORDERED: NS 250 ML IV PRN (09:00)
[2024-01-05] MEDS ORDERED: Dose Adjust by Pharmacy XX STA ×2 (09:18→14:39)
[2024-01-05 14:19] LABS: BASOPHILS ABSOLUTE AUTO 0.06 K/mm3 (0.00-0.23); BASOPHILS PERCENT AUTO 0 % (0-2); EOSINOPHILS ABSOLUTE AUTO 0.49 K/mm3 (0.00-0.68); EOSINOPHILS PERCENT AUTO 3 % (0-6); Hematocrit 41.9 % (37.0-53.0); Hemoglobin 14.3 g/dL (13.5-17.5); IMMATURE GRAN ABSOLUTE AUTO 0.09 K/mm3 (0.00-0.10); IMMATURE GRAN PERCENT AUTO 1 % (0-1); LYMPHOCYTES ABSOLUTE AUTO 1.16 K/mm3 (0.84-5.20); LYMPHOCYTES PERCENT AUTO 7 % (21-46); MONOCYTES ABSOLUTE AUTO 2.19 K/mm3 (0.16-1.47); MONOCYTES PERCENT AUTO 13 % (4-13); Mean Corpuscular HGB 30.8 pg (26.0-34.0); Mean Corpuscular HGB Conc 34.1 g/dL (31.5-36.5); Mean Corpuscular Volume 90 fL (80-100); Mean Platelet Volume 11.2 fL (9.1-12.4); NEUTROPHILS ABSOLUTE AUTO 12.94 K/mm3 (1.96-9.15); NEUTROPHILS PERCENT AUTO 76 % (41-73); Platelet Count 97 K/mm3 (150-400); RDW Coefficient Variation 15.2 % (11.7-14.2); RDW Standard Deviation 50.4 fL (35.1-46.3); Red Blood Cell Count 4.65 M/mm3 (4.30-5.90); White Blood Cell Count 16.93 K/mm3 (4.00-11.30)
[2024-01-05 16:36] VITALS: BP 146/60
--- NOTE | 2024-01-05 18:17 | NUR ---
SHIFT SUMMARY A&O TIMES 4, PAIN CONTROLED SUBLAMIZE AND OXYCODONE, RIGHT HIP FRACTURE. NPO AFTER MIDNIGHT. SURGERY SCHEDULED FOR 01/06/24. VSS, INCREASED ABNORMAL LUNGS SOUNDS/ D/C FLUIDS. AFIB 70S ON QUOTE CLERK, CARDIAC ULTRA SOUND WAITING FOR RESULTS. HEPARIN DRIP 15 UNITS PER KG PER HOUR. PATIENT ON WARFARIN AT HOME. ANTIBOTICS GIVEN
[2024-01-05 19:04] VITALS: BP 111/48
--- NOTE | 2024-01-06 01:29 | NUR ---
NPO SINCE MIDNIGHT FOR PROCEDURE IN THE AM. VOICED UNDERSTANDING. FLUIDS, ETC REMOVED. CALL LIGHT IN REACH
--- NOTE | 2024-01-06 03:16 | NUR ---
CATERING TRUCK OPERATOR SUMMARY VSS. ALERT AND ORIENTED X 4. HARD OF HEARING. PLEASANT AND COOPERATIVE WITH TREATMENT. HEPARIN DRIP INFUSING (SEE MAR FOR DETAILS). HAS BEEN NPO FOR HIP PROCEDURE LATER TODAY. ELECTRONIC ORGAN MECHANIC CALLED AND REPORTED PT TO HAVE XRAY OF HIP LATER IN PREPARTION FOR SURGICAL PROCEDURE, PRIOR TO PROCEDURE. PT HAS BEEN RESTING QUIETLY WITH FEW INTERRUTPTIONS. HOB ELEVATED, O2 PER NC. CONTINUOUS PULSE OX - SATS IN THE 90'S. NO NOTED S/S ACUTE DISTRESS. CALL LIGHT IN REACH, RAILS UP X 2 AND BED IN LOW POSITION FOR SAFETY. DENIED LOSS OF FEELING, ABLE TO MOVE ALL 4 EXT (LIMITED WITH RIGHT SIDE DUE TO HIP FX). WILL CONTINUE TO MONITOR.
[2024-01-06 04:27] VITALS: BP 113/72
[2024-01-06 04:57] LABS: BASOPHILS ABSOLUTE AUTO 0.08 K/mm3 (0.00-0.23); BASOPHILS PERCENT AUTO 1 % (0-2); EOSINOPHILS ABSOLUTE AUTO 0.84 K/mm3 (0.00-0.68); EOSINOPHILS PERCENT AUTO 6 % (0-6); Hematocrit 36.6 % (37.0-53.0); Hemoglobin 12.6 g/dL (13.5-17.5); IMMATURE GRAN ABSOLUTE AUTO 0.07 K/mm3 (0.00-0.10); IMMATURE GRAN PERCENT AUTO 1 % (0-1); LYMPHOCYTES ABSOLUTE AUTO 1.44 K/mm3 (0.84-5.20); LYMPHOCYTES PERCENT AUTO 9 % (21-46); MONOCYTES ABSOLUTE AUTO 2.11 K/mm3 (0.16-1.47); MONOCYTES PERCENT AUTO 14 % (4-13); Mean Corpuscular HGB Conc 34.4 g/dL (31.5-36.5); Mean Corpuscular Volume 90 fL (80-100); Mean Platelet Volume 12.3 fL (9.1-12.4); NEUTROPHILS ABSOLUTE AUTO 10.84 K/mm3 (1.96-9.15); NEUTROPHILS PERCENT AUTO 70 % (41-73); Platelet Count 89 K/mm3 (150-400); RDW Coefficient Variation 15.2 % (11.7-14.2); RDW Standard Deviation 49.8 fL (35.1-46.3); Red Blood Cell Count 4.07 M/mm3 (4.30-5.90); White Blood Cell Count 15.38 K/mm3 (4.00-11.30)
[2024-01-06] MEDS ORDERED: Clarify Drug Order XX ONE (05:20)
[2024-01-06 05:54] LABS: Albumin/Globulin Ratio 0.9 (0.8-1.8); Bilirubin, Total 0.8 mg/dL (0.1-1.0); Bun/Creatinine Ratio 27.4 (12.0-20.0); Calcium, Blood 8.5 mg/dL (8.5-10.1); Creatinine, Blood 0.8 mg/dL (0.60-1.20); Globulin, Blood 3.2 g/dL (2.2-4.0); Potassium, Blood 4.4 mmol/L (3.5-5.5); Total Protein, Blood 6.2 g/dL (6.4-8.2)
[2024-01-06 07:32] VITALS: BP 116/55
[2024-01-06] MEDS ORDERED: NS 250 ML IV PRN (08:05)
[2024-01-06 12:34] LABS: BASOPHILS PERCENT AUTO 1 % (0-2); EOSINOPHILS ABSOLUTE AUTO 1.03 K/mm3 (0.00-0.68); EOSINOPHILS PERCENT AUTO 6 % (0-6); Hematocrit 36.5 % (37.0-53.0); Hemoglobin 12.4 g/dL (13.5-17.5); IMMATURE GRAN PERCENT AUTO 1 % (0-1); LYMPHOCYTES ABSOLUTE AUTO 1.92 K/mm3 (0.84-5.20); LYMPHOCYTES PERCENT AUTO 11 % (21-46); MONOCYTES PERCENT AUTO 13 % (4-13); Mean Corpuscular HGB 30.6 pg (26.0-34.0); Mean Corpuscular Volume 90 fL (80-100); Mean Platelet Volume 11.9 fL (9.1-12.4); NEUTROPHILS ABSOLUTE AUTO 12.13 K/mm3 (1.96-9.15); NEUTROPHILS PERCENT AUTO 69 % (41-73); Platelet Count 92 K/mm3 (150-400); RDW Coefficient Variation 15.1 % (11.7-14.2); RDW Standard Deviation 50.1 fL (35.1-46.3); Red Blood Cell Count 4.05 M/mm3 (4.30-5.90); White Blood Cell Count 17.58 K/mm3 (4.00-11.30)
--- NOTE | 2024-01-06 13:53 | NUR ---
RN NOTE MR MCCONNELL HAS RIGHT HIP PAIN, GIVEN OXY 15MG PO WHICH HELPED THIS AM, THEN ANOTHER DOSE OF OXY FOLLOWED BY FENTANYL PRIOR TO BED BATH. NO SURGERY TODAY, PLAN FOR NPO FROM MIDNIGHT TONIGHT FOR SURGERY TOMORROW. HE HAS BEEN ABLE TO EAT LUNCH AND DRINK FLUIDS AFTER IT WAS CONFIRMED THAT HE WAS NOT GOING TO OR TODAY. CROWE CATHETER IN PLACE DRAINING CLEAR YELLOW URINE. LOG ROLLED IN BED FOR BED BATH AND PRESSURE RELIEF. EDUCATED ON INCENTIVE SPIROMETER - HE HAD GOOD TEQHNIQUE UP TO 1000CC. ON TELEMETRY IN AFIB, NO CALLS FROM REAL ESTATE RECRUITER. HIS SON WAS HERE THIS AM AND IS AWARE OF DELAY IN SURGERY. AWAITING TRANSFER TO SURGICAL UNIT PER OP.
--- NOTE | 2024-01-06 13:58 | NUR ---
RN NOTE ADDN. HEPARIN GTT RATE UNCHANGED TODAY AT 15U/KG/HR.
--- NOTE | 2024-01-06 14:45 | NUR ---
RN NOTE REPORT TO HAILEE SMITH AND PT TRANSFERED TO SURGICAL [facility] ON HIS BED WITH HEPARIN GTT AND TELEMETRY.
[2024-01-06 14:56] VITALS: BP 101/59
--- NOTE | 2024-01-06 16:14 | NUR ---
ARRIVAL/SHIFT SUMMARY PT ARRIVED TO SURGICAL FLOOR BROUGHT DOWN FROM MEDICAL BY BOILER SERVICE TECHNICIAN X2 IN HIS BED, VERIFIED TELEMETRY WHICH REPORTS HE WAS AFIB 90'S-100, VERIFIED HEP DRIP WITH MULTISENSOR INTELLIGENCE OFFICER MATCHING THE PUMP PROGRAMMED RATE WITH THE CURRENT ORDER. PT RESTING IN BED AT TIME OF ARRIVAL, A/O, ABLE TO ANSWER QUESTIONS, CROWE EMPTIED FOR 600ML, NO PAIN AT THIS TIME. CALL LIGHT IN REACH.
[2024-01-06 20:01] VITALS: BP 111/57
[2024-01-07] VITALS (20 sets, daily range): BP systolic 96–144; BP diastolic 45–97
[2024-01-07 04:42] LABS: BASOPHILS ABSOLUTE AUTO 0.09 K/mm3 (0.00-0.23); BASOPHILS PERCENT AUTO 1 % (0-2); EOSINOPHILS ABSOLUTE AUTO 0.98 K/mm3 (0.00-0.68); EOSINOPHILS PERCENT AUTO 7 % (0-6); Hemoglobin 11.1 g/dL (13.5-17.5); IMMATURE GRAN ABSOLUTE AUTO 0.08 K/mm3 (0.00-0.10); IMMATURE GRAN PERCENT AUTO 1 % (0-1); LYMPHOCYTES ABSOLUTE AUTO 1.69 K/mm3 (0.84-5.20); LYMPHOCYTES PERCENT AUTO 12 % (21-46); MONOCYTES ABSOLUTE AUTO 1.78 K/mm3 (0.16-1.47); MONOCYTES PERCENT AUTO 12 % (4-13); Mean Corpuscular HGB 30.7 pg (26.0-34.0); Mean Corpuscular HGB Conc 33.6 g/dL (31.5-36.5); Mean Corpuscular Volume 91 fL (80-100); Mean Platelet Volume 11.5 fL (9.1-12.4); NEUTROPHILS ABSOLUTE AUTO 9.87 K/mm3 (1.96-9.15); NEUTROPHILS PERCENT AUTO 68 % (41-73); Platelet Count 84 K/mm3 (150-400); RDW Coefficient Variation 15.2 % (11.7-14.2); RDW Standard Deviation 51.4 fL (35.1-46.3); Red Blood Cell Count 3.62 M/mm3 (4.30-5.90); White Blood Cell Count 14.49 K/mm3 (4.00-11.30)
--- NOTE | 2024-01-07 05:00 | NUR ---
SHIFT SUMMARY PATIENT MEDICATED SEVERAL TIMES FOR PAIN AND SLEEP. HE WAS ON HEPARIN DRIP ALL NIGHT. VERY [facility] TELE AF @ 84 PER PMO LEAD. CROWE DRAINING, PATIENT NPO AT MIDNIGHT FOR SURGERY SOMETIME TODAY. O2/2L/NC WITH OXIMETER PLACED ALL NIGHT.
[2024-01-07 05:04] LABS: Albumin, Blood 2.7 g/dL (3.4-5.0); Albumin/Globulin Ratio 0.8 (0.8-1.8); Bilirubin, Total 0.6 mg/dL (0.1-1.0); Bun/Creatinine Ratio 26.1 (12.0-20.0); Calcium, Blood 8.3 mg/dL (8.5-10.1); Creatinine, Blood 0.8 mg/dL (0.60-1.20); Globulin, Blood 3.2 g/dL (2.2-4.0); Potassium, Blood 4.5 mmol/L (3.5-5.5); Total Protein, Blood 5.9 g/dL (6.4-8.2)
[2024-01-07] MEDS ORDERED: Clarify Drug Order XX ONE (05:10)
--- NOTE | 2024-01-07 09:10 | NUR ---
DR. SAMS ROUNDED NOTIFIED THAT HEPARIN DRIP WAS STOPPED BY ORTHO FOR SURGERY TODAY.
[2024-01-07 10:18] LABS: Hematocrit 31.6 % (37.0-53.0); Hemoglobin 10.7 g/dL (13.5-17.5)
[2024-01-07] MEDS ORDERED: cefTAZidime 1,000 MG in NS 50 ML IV SCH (14:00)
[2024-01-07] MEDS ORDERED: Lactated Ringer's 1,000 ML IV SCH (14:40)
--- NOTE | 2024-01-07 14:43 | NUR ---
PT AXOX3, HAS WET COUGH AND GRATING SOUNDS UPON EXPIRATION THAT CLEARS WITH COUGHING. POST COUGHING, LUNGS CLEAR BILAT THROUGHOUT.
--- NOTE | 2024-01-07 14:46 | NUR ---
PT TAKEN TO DAY SURGERY, FAMILY NOTIFIED.
[2024-01-07] MEDS ORDERED: Etomidate 2MG / ML 10ML Vial ONE (15:22)
[2024-01-07] MEDS ORDERED: FentaNYL Citrate 50 MCG/ML 2 ML Injection ONE ×2 (15:23→18:09)
[2024-01-07] MEDS ORDERED: Phenylephrine HCl 10mg/ml 1 ml Vial ONE (15:38)
[2024-01-07] MEDS ORDERED: CeFAZolin Sodium 2,000 MG in NS 100 ML IV SCH (15:40)
[2024-01-07] MEDS ORDERED: Tranexamic Acid 100 ML IV SCH ×2 (15:40)
--- NOTE | 2024-01-07 18:06 | NUR ---
SHIFT SUMMARY PT IN RECOVERY ROOM AT THIS TIME. PAIN MANAGED WITH PO PAIN MEDICATION THIS SHIFT. FAMILY AT BEDSIDE FOR SUPPORT.
--- NOTE | 2024-01-07 18:43 | NUR ---
PT ARRIVED BACK TO THE ROOM AT APPROXIMATELY 1815. PT DROWSY AND SLIGHTLY CONFUSED POST OP. PT ABLE TO MOVE ALL EXTREMITIES AND ANSWERS QUESTIONS. FAMILY AT THE BEDSIDE. R HIP DRESSING C/D/I.
--- NOTE | 2024-01-07 19:26 | NUR ---
BEDSIDE REPORT GIVEN TO STACIE SMITH. DRESSING STILL C/D/I. PT REMAINS DROWSY BUT IS ABLE TO WAKE AND ANSWER QUESTIONS. PT ALERT AND ORIENTED X3 AT SHIFT CHANGE. CALL LIGHT WITHIN REACH.
[2024-01-07] MEDS ORDERED: Heparin Sodium,Porcine/0.5 NS 500 ML IV SCH (21:00)
[2024-01-08] MEDS ORDERED: CeFAZolin Sodium 2,000 MG in NS 100 ML IV SCH
[2024-01-08 03:11] VITALS: BP 109/55
--- NOTE | 2024-01-08 05:08 | NUR ---
SUMMARY- PT PAIN HAS BEEN MANAGED WELL. PT IS DRINKING SOME MORE PO FLUIDS THIS SHIFT. CROWE IS DRAINING YELLOW URINE TO GRAVITY. PT RIGHT HIP DRESSING HAS SOME SHADOWING. DRESSING IS DRY AND INTACT. PT REPOSITIONED NEEDED. CALL LIGHT IN REACH.
[2024-01-08 07:21] LABS: Hematocrit 30.3 % (37.0-53.0); Hemoglobin 10.2 g/dL (13.5-17.5); Platelet Count 107 K/mm3 (150-400)
[2024-01-08 07:28] VITALS: BP 115/63
[2024-01-08 07:46] LABS: Albumin, Blood 2.6 g/dL (3.4-5.0); Albumin/Globulin Ratio 0.8 (0.8-1.8); Bilirubin, Total 0.5 mg/dL (0.1-1.0); Bun/Creatinine Ratio 29.2 (12.0-20.0); Calcium, Blood 8.8 mg/dL (8.5-10.1); Creatinine, Blood 0.69 mg/dL (0.60-1.20); Globulin, Blood 3.4 g/dL (2.2-4.0); Potassium, Blood 5.3 mmol/L (3.5-5.5)
[2024-01-08] MEDS ORDERED: Dose Adjust by Pharmacy XX STA ×2 (07:50→13:52)
[2024-01-08 14:21] VITALS: BP 107/56
[2024-01-08] MEDS ORDERED: Warfarin Sodium 3 MG Tab PO SCH (18:00)
[2024-01-08 19:16] VITALS: BP 117/75
--- NOTE | 2024-01-08 19:34 | NUR ---
SHIFT SUMMARY PT IS POD#1 FROM R JOHNNIE HIP. PAIN MANAGED WITH OXYCODONE AND TYLENOL. PT HAS BEEN MOSTLY ALERT AND ORIENTED BUT IS FORGETFUL AT TIMES. PT IS [place] SO IT IS DIFFICULT FOR HIM TO FOLLOW DIRECTIONS. PT'S FAMILY REPORTS THAT HE HAS HEARING AIDS AT HOME, FAMILY ASKED TO BRING PATIENT'S HEARING AIDS SO HE IS ABLE TO PARTICIPATE IN HIS CARE. PT IS A 2 PERSON MOD-MAX ASSIST FOR TRANSFERS. PT SAT UP TO THE CHAIR TODAY. CALL LIGHT WITHIN REACH. BEDSIDE REPORT GIVEN TO FABIEN SMITH.
[2024-01-09 02:53] VITALS: BP 109/63
--- NOTE | 2024-01-09 04:42 | NUR ---
SHIFT SUMMARY POD2 R JOHNNIE HIP. SENSATION AND CIRCULATION REMAIN INTACT IN RLE. AQUACEL IS C/D/I. VSS, TELE READS AFIB @92 THIS AM. TELE REPORTS PT HAS BEEN SWITCHING BETWEEN A FIB AND A FLUTTER T/O THE NIGHT. PT REMAINS ASYMPTOMATIC. PT SLEPT WELL T/O THE NIGHT. MEDICATED FOR PAIN WITH PRN'S WITH TOLLERABLE RESULTS. PT TOLLERATED REPOSITIONING VERY POORLY, YELLING OUT WHEN COMPLETED. PT EDUCATED ON PRESSURE ULCER PREVENTION T/O THE NIGHT. PT VOIDING INTO URINAL INDEPENDENTLY, DID NOT GET OOB THIS SHIFT. PLAN TO CONTINUE TO WORK WITH PT/OT AND D/C TO SNF WHEN AVAILABLE. THE PATIENT IS CURRENTLY RESTING, IN NO DISTRESS, CALL LIGHT IN REACH.
[2024-01-09 04:49] LABS: BASOPHILS ABSOLUTE AUTO 0.08 K/mm3 (0.00-0.23); BASOPHILS PERCENT AUTO 0 % (0-2); EOSINOPHILS ABSOLUTE AUTO 0.23 K/mm3 (0.00-0.68); EOSINOPHILS PERCENT AUTO 1 % (0-6); Hematocrit 27.3 % (37.0-53.0); Hemoglobin 9.3 g/dL (13.5-17.5); IMMATURE GRAN ABSOLUTE AUTO 0.64 K/mm3 (0.00-0.10); IMMATURE GRAN PERCENT AUTO 3 % (0-1); LYMPHOCYTES ABSOLUTE AUTO 1.94 K/mm3 (0.84-5.20); LYMPHOCYTES PERCENT AUTO 10 % (21-46); MONOCYTES ABSOLUTE AUTO 2.69 K/mm3 (0.16-1.47); MONOCYTES PERCENT AUTO 13 % (4-13); Mean Corpuscular HGB 31.3 pg (26.0-34.0); Mean Corpuscular HGB Conc 34.1 g/dL (31.5-36.5); Mean Corpuscular Volume 92 fL (80-100); Mean Platelet Volume 12.2 fL (9.1-12.4); NEUTROPHILS PERCENT AUTO 72 % (41-73); Platelet Count 136 K/mm3 (150-400); RDW Standard Deviation 49.5 fL (35.1-46.3); Red Blood Cell Count 2.97 M/mm3 (4.30-5.90); White Blood Cell Count 20.28 K/mm3 (4.00-11.30)
[2024-01-09 05:16] LABS: Anti-Xa UFH, PHA Monitoring 0.45 IU/mL; International Normalized Ratio 1.12; Prothrombin Time Results 11.9 Sec (9.7-11.5)
[2024-01-09 05:32] LABS: Albumin, Blood 2.6 g/dL (3.4-5.0); Anion Gap 8 mmol/L (3-11); Blood Urea Nitrogen 22 mg/dL (8-24); Bun/Creatinine Ratio 29.6 (12.0-20.0); CO2, Blood 32 mmol/L (21-32); Calcium, Blood 8.4 mg/dL (8.5-10.1); Chloride, Blood 97 mmol/L (98-108); Creatinine, Blood 0.74 mg/dL (0.60-1.20); Glomerular Filtration Rate 88 (60-); Glucose, Blood 152 mg/dL (70-99); Phosphorus, Blood 1.8 mg/dL (2.5-4.9); Potassium, Blood 4.7 mmol/L (3.5-5.5); Sodium, Blood 132 mmol/L (136-145)
--- NOTE | 2024-01-09 06:06 | NUR ---
DOCTOR COMMUNICATION THIS RN REACHED OUT TO THE HOSPITALIST DUE TO THE PATIENTS H/H FALLING AND THE PRESENT HEPARIN DRIP. DR ECHEVARRIA ORDERED ANOTHER H/H CHECK IN 6 HOURS. COMMUNICATED THIS TO PHARMACY BECAUSE THEY ARE MANAGING THE HEPARIN.
[2024-01-09] MEDS ORDERED: Clarify Drug Order XX ONE (06:10)
[2024-01-09 07:41] VITALS: BP 107/57
[2024-01-09 11:58] LABS: Hematocrit 27.8 % (37.0-53.0); Hemoglobin 9.4 g/dL (13.5-17.5)
[2024-01-09 14:23] VITALS: BP 100/59
--- NOTE | 2024-01-09 17:21 | NUR ---
SHIFT SUMMARY: POD2 RIGHT JOHNNIE HIP PATIENT IS VERY MATCH-[place] BAND BUT IS A&OX4. PATIENT CONTINUES TO BE ON 2L NC WITH >90% OXYGEN SATS PER BIOX. PAIN IS MANAGED WITH PO TYLENOL AND PO OXY AT THIS TIME. HIS RIGHT HIP HAS AN AQUACEL DRESSING THAT IS C/D/I. HE DENIES NUMBNESS OR TINGLING THROUGHOUT ALL EXTREMITIES. PATIENT DID WORK WITH PHYSICAL AND OCCUPATIONAL THERAPY TODAY. PATIENT CONTINUES TO BE ON A HEPARIN GTT AT THIS TIME AND ALSO RECIEVED HIS PO WARFARIN PER EMAR. PATIENT IS IN HIS RECLINER CHAIR WITH CALL LIGHT IN REACH.
[2024-01-09] MEDS ORDERED: Warfarin Sodium 4 MG Tab PO ONE (18:00)
[2024-01-09 19:56] VITALS: BP 93/61
[2024-01-10 03:39] VITALS: BP 114/65
--- NOTE | 2024-01-10 04:45 | NUR ---
SHIFT SUMMARY POD3 R JOHNNIE HIP. AQUCEL REMAINS C/D/I. SENSATION AND CIRCULATION REMAINS INTACT. VSS, TELE READS A FIB 81. PT SLEPT WELL T/O THE NIGHT. GENERALLY REFUSED REPOSITIONING. PT REQUIRED 2 MAX ASSIST TO GET FROM THE RECLINER TO BED. MEDICATED FOR PAIN WITH PRN'S WITH TOLLERABLE RESULTS. PT EXPRESSD FRUSTRATION THAT HE HAD TO ASK FOR PAIN MEDICATION, EDUCATION ABOUT PRN STATUS AND WHAT THAT ENTAILS. UTILIZING URINAL TO VOID INDEP. NO BM NOTED. TOLLERATING PO INTAKE W/O N/V. OVERALL NO ACUTE EVENTS NOTED. PLAN FOR POSSIBLE D/C TO SNF TODAY.
[2024-01-10 05:36] LABS: Hematocrit 27.9 % (37.0-53.0); Hemoglobin 9.3 g/dL (13.5-17.5); Mean Platelet Volume 11.1 fL (9.1-12.4); Platelet Count 174 K/mm3 (150-400)
[2024-01-10 05:45] LABS: Anti-Xa UFH, PHA Monitoring 0.4 IU/mL; International Normalized Ratio 1.5; Prothrombin Time Results 15.6 Sec (9.7-11.5)
[2024-01-10] MEDS ORDERED: Clarify Drug Order XX ONE (05:55)
[2024-01-10 07:19] VITALS: BP 112/63
[2024-01-10] MEDS ORDERED: Polyethylene Glycol 3350 17 gm PO ONE (12:25)
[2024-01-10 13:45] VITALS: BP 192/83
--- NOTE | 2024-01-10 15:25 | NUR ---
DISCHARGE SUMMARY POD3 R JOHNNIE HIP, A/OX4, VSS, TOLERATING PO, PAIN MANAGED UNPUR SEP, VOIDING WELL, HE REPORTS NO BM SO BOWEL CARE WAS STARTED. PT FOUND SITTING ON THE FLOOR AT AROUND 1330, PT REPORTS THAT HE DID NOT FALL BUT SAT DOWN RIGHT NEXT TO THE BED, PHYSICAL EXAMINATION DID NOT SHOW ANY SIGNS OF A FALL, PT ANSWERS ALL QEUSTIONS APPROPRIATELY, PT REPORTS FEELING TIRED HE HAD JUST BEEN AMBULATING SHORTLY BEFORE THAT. PT PICKED UP BY [facility] TO GO TO [facility], REPORT GIVEN TO JADEN SMITH AT [facility].
[2024-01-10] MEDS ORDERED: Warfarin Sodium 4 MG Tab PO ONE (18:00)
== END 2024-01-10 14:00 | DRG 956 ==
LOC: ER 20:54 → MEDS 22:28 → SURS 22:28 → MEDS 01-05 00:17 → SURS 01-06 14:51
PROVIDERS: Emergency Medicine; Family Medicine; Orthopaedic Surgery Sports Medicine; ADMIT Student in an Organized Health Care Education/Training Program
PROC: 0SRR019 Replacement of Right Hip Joint, Femoral Surface with Metal Synthetic Substitute, Cemented, Open Approach (ICD-10-PCS; principal; 2024-01-07 14:30)
DX: S72.141A Displaced intertrochanteric fracture of right femur, initial encounter for closed fracture (principal); T79.6XXA Traumatic ischemia of muscle, initial encounter; J18.9 Pneumonia, unspecified organism; J96.01 Acute respiratory failure with hypoxia; I48.20 Chronic atrial fibrillation, unspecified; I50.32 Chronic diastolic (congestive) heart failure; D64.9 Anemia, unspecified; I11.0 Hypertensive heart disease with heart failure; I25.10 Atherosclerotic heart disease of native coronary artery without angina pectoris; E78.5 Hyperlipidemia, unspecified; M54.50 Low back pain, unspecified; W18.30XA Fall on same level, unspecified, initial encounter; I73.9 Peripheral vascular disease, unspecified; Z79.01 Long term (current) use of anticoagulants; Z95.2 Presence of prosthetic heart valve; Z79.891 Long term (current) use of opiate analgesic
CPT/HCPCS: 0241U; 36415; 70450; 71045; 73502; 73552; 80053; 80069; 81001; 82550; 82947; 83735; 83880; 84145; 85014; 85018; 85025; 85049; 85520; 85610; 85730; 93005; 93010; 93306; 94762; 96374; 96375; 97110; 97162; 97165; 97530; 97535; 99285-25; A9270; J0456; J0690; J0696; J0713; J1644; J2270; J2371; J2405; J3010; J7050; J7120

== ENCOUNTER 2024-01-22 14:38 | Emergency (ER) | payer OTHER ==
[~2024-01-22] VITALS: Ht 177.8 cm; Wt 99.3 kg
[~2024-01-22 14:38] MED LIST changes: +EZETIMIBE10 M6 PO; +PRAVASTATIN SOD40 MG PO
[2024-01-22 16:15] LABS: BASOPHILS PERCENT AUTO 1 % (0-2); EOSINOPHILS ABSOLUTE AUTO 0.49 K/mm3 (0.00-0.68); EOSINOPHILS PERCENT AUTO 4 % (0-6); Hematocrit 30.3 % (37.0-53.0); Hemoglobin 9.6 g/dL (13.5-17.5); IMMATURE GRAN ABSOLUTE AUTO 0.09 K/mm3 (0.00-0.10); IMMATURE GRAN PERCENT AUTO 1 % (0-1); LYMPHOCYTES ABSOLUTE AUTO 1.34 K/mm3 (0.84-5.20); LYMPHOCYTES PERCENT AUTO 10 % (21-46); MONOCYTES ABSOLUTE AUTO 1.69 K/mm3 (0.16-1.47); MONOCYTES PERCENT AUTO 13 % (4-13); Mean Corpuscular HGB 31.7 pg (26.0-34.0); Mean Corpuscular HGB Conc 31.7 g/dL (31.5-36.5); Mean Corpuscular Volume 100 fL (80-100); Mean Platelet Volume 9.5 fL (9.1-12.4); NEUTROPHILS ABSOLUTE AUTO 9.21 K/mm3 (1.96-9.15); NEUTROPHILS PERCENT AUTO 71 % (41-73); Platelet Count 217 K/mm3 (150-400); RDW Coefficient Variation 19.1 % (11.7-14.2); RDW Standard Deviation 68.2 fL (35.1-46.3); Red Blood Cell Count 3.03 M/mm3 (4.30-5.90); White Blood Cell Count 12.92 K/mm3 (4.00-11.30)
[2024-01-22] MEDS ORDERED: FentaNYL Citrate 50 MCG/ML 2 ML Injection IV ONE (16:15)
[2024-01-22 16:40] LABS: Albumin, Blood 2.8 g/dL (3.4-5.0); Albumin/Globulin Ratio 0.7 (0.8-1.8); Bun/Creatinine Ratio 27.5 (12.0-20.0); Calcium, Blood 8.6 mg/dL (8.5-10.1); Creatinine, Blood 0.91 mg/dL (0.60-1.20); Globulin, Blood 3.8 g/dL (2.2-4.0); Total Protein, Blood 6.6 g/dL (6.4-8.2)
[2024-01-22 23:00] VITALS: BP 114/54
== END 2024-01-22 23:30 | disposition home or self-care (01) ==
LOC: ER 14:38
PROVIDERS: Physician Assistant
DX: M96.842 Postprocedural seroma of a musculoskeletal structure following a musculoskeletal system procedure (principal); Y83.8 Other surgical procedures as the cause of abnormal reaction of the patient, or of later complication, without mention of misadventure at the time of the procedure; Z96.641 Presence of right artificial hip joint; R63.5 Abnormal weight gain; Z68.31 Body mass index [BMI] 31.0-31.9, adult; I11.0 Hypertensive heart disease with heart failure; I50.9 Heart failure, unspecified; I25.10 Atherosclerotic heart disease of native coronary artery without angina pectoris; E78.5 Hyperlipidemia, unspecified; Z88.8 Allergy status to other drugs, medicaments and biological substances; Z79.82 Long term (current) use of aspirin; Z79.01 Long term (current) use of anticoagulants; Z79.899 Other long term (current) drug therapy
CPT/HCPCS: 72192; 73502; 80053; 85025; 96374; 99284-25; J3010

== ENCOUNTER 2024-01-29 12:26 | Emergency (ER) | payer OTHER ==
[~2024-01-29] VITALS: Ht 180.3 cm; Wt 99.8 kg
[2024-01-29 14:24] LABS: BASOPHILS ABSOLUTE AUTO 0.06 K/mm3 (0.00-0.23); BASOPHILS PERCENT AUTO 1 % (0-2); EOSINOPHILS ABSOLUTE AUTO 0.39 K/mm3 (0.00-0.68); EOSINOPHILS PERCENT AUTO 5 % (0-6); Hematocrit 35.1 % (37.0-53.0); Hemoglobin 11.1 g/dL (13.5-17.5); IMMATURE GRAN ABSOLUTE AUTO 0.05 K/mm3 (0.00-0.10); IMMATURE GRAN PERCENT AUTO 1 % (0-1); LYMPHOCYTES ABSOLUTE AUTO 1.28 K/mm3 (0.84-5.20); LYMPHOCYTES PERCENT AUTO 15 % (21-46); MONOCYTES ABSOLUTE AUTO 1.11 K/mm3 (0.16-1.47); MONOCYTES PERCENT AUTO 13 % (4-13); Mean Corpuscular HGB 31.3 pg (26.0-34.0); Mean Corpuscular HGB Conc 31.6 g/dL (31.5-36.5); Mean Corpuscular Volume 99 fL (80-100); Mean Platelet Volume 10.5 fL (9.1-12.4); NEUTROPHILS ABSOLUTE AUTO 5.47 K/mm3 (1.96-9.15); NEUTROPHILS PERCENT AUTO 65 % (41-73); Platelet Count 168 K/mm3 (150-400); RDW Standard Deviation 65.2 fL (35.1-46.3); Red Blood Cell Count 3.55 M/mm3 (4.30-5.90); White Blood Cell Count 8.36 K/mm3 (4.00-11.30)
[2024-01-29 14:34] LABS: Albumin, Blood 2.9 g/dL (3.4-5.0); Albumin/Globulin Ratio 0.7 (0.8-1.8); Bilirubin, Total 0.9 mg/dL (0.1-1.0); Bun/Creatinine Ratio 23.3 (12.0-20.0); Calcium, Blood 8.9 mg/dL (8.5-10.1); Creatinine, Blood 0.86 mg/dL (0.60-1.20); Potassium, Blood 4.2 mmol/L (3.5-5.5); Total Protein, Blood 6.9 g/dL (6.4-8.2)
[2024-01-29] MEDS ORDERED: Furosemide 10 MG/ML 4ML Vial IV ONE (16:35)
[2024-01-29 18:51] VITALS: BP 138/74
== END 2024-01-29 19:01 | disposition home or self-care (01) ==
LOC: ER 12:26
PROVIDERS: Student in an Organized Health Care Education/Training Program
DX: I11.0 Hypertensive heart disease with heart failure (principal); I50.9 Heart failure, unspecified; E78.5 Hyperlipidemia, unspecified; I25.10 Atherosclerotic heart disease of native coronary artery without angina pectoris; Z79.82 Long term (current) use of aspirin; Z79.01 Long term (current) use of anticoagulants; Z79.899 Other long term (current) drug therapy; Z88.8 Allergy status to other drugs, medicaments and biological substances
CPT/HCPCS: 71046; 80053; 83880; 84484; 85025; 93005; 93010; 96374; 99285-25; J1940

== ENCOUNTER 2024-05-23 01:18 | Inpatient (IN) | payer OTHER ==
[~2024-05-23] VITALS: Ht 177.8 cm; Wt 101.9 kg
[~2024-05-23 01:18] MED LIST changes: -EZETIMIBE10 M6 PO; -PRAVASTATIN SOD40 MG PO
[2024-05-23 01:34] LABS: BASOPHILS ABSOLUTE AUTO 0.08 K/mm3 (0.00-0.23); BASOPHILS PERCENT AUTO 1 % (0-2); EOSINOPHILS ABSOLUTE AUTO 0.06 K/mm3 (0.00-0.68); EOSINOPHILS PERCENT AUTO 1 % (0-6); Hematocrit 43.6 % (37.0-53.0); IMMATURE GRAN ABSOLUTE AUTO 0.06 K/mm3 (0.00-0.10); IMMATURE GRAN PERCENT AUTO 1 % (0-1); LYMPHOCYTES ABSOLUTE AUTO 1.76 K/mm3 (0.84-5.20); LYMPHOCYTES PERCENT AUTO 15 % (21-46); MONOCYTES ABSOLUTE AUTO 1.52 K/mm3 (0.16-1.47); MONOCYTES PERCENT AUTO 13 % (4-13); Mean Corpuscular HGB 27.3 pg (26.0-34.0); Mean Corpuscular HGB Conc 32.1 g/dL (31.5-36.5); Mean Corpuscular Volume 85 fL (80-100); Mean Platelet Volume 11.4 fL (9.1-12.4); NEUTROPHILS PERCENT AUTO 71 % (41-73); Platelet Count 142 K/mm3 (150-400); RDW Coefficient Variation 17.6 % (11.7-14.2); RDW Standard Deviation 53.4 fL (35.1-46.3); Red Blood Cell Count 5.13 M/mm3 (4.30-5.90); White Blood Cell Count 11.88 K/mm3 (4.00-11.30)
[2024-05-23 01:53] LABS: Base Excess Venous -2.1 mmol/L; Bicarbonate Venous 21.7 mmol/L (24.0-30.0); PCO2 Venous 52.6 mmHg (38-42)
[2024-05-23 01:54] LABS: pH Blood Venous 7.28 (7.34-7.37)
[2024-05-23 02:03] LABS: Source, Urine Straight Cath
[2024-05-23 02:12] LABS: Bilirubin, Urine Neg (Neg); Blood, Urine Neg (Neg); Glucose Qualitative, Urine Neg (Neg); Ketones, Urine Neg (Neg); Leukocyte Esterase, Urine Neg (Neg); Nitrite, Urine Neg (Neg); Protein, Urine 3+ (Neg); Specific Gravity, Urine 1.025 (1.003-1.022); Urobilinogen, Urine 2+ (Normal)
[2024-05-23 02:28] LABS: International Normalized Ratio 2.08; Prothrombin Time Results 21.1 Sec (9.7-11.5)
[2024-05-23 02:29] LABS: U Amphetamine Screen Not Detected; U Barbituate Screen Not Detected; U Benzodiazapine Screen Not Detected; U Buprenorphine Screen Not Detected; U Cannabinoids Screen Not Detected; U Cocaine Screen Not Detected; U Methadone Screen Not Detected; U Methamphetamine Screen Not Detected; U Opiates Screen Not Detected; U Oxycodone Screen DETECTED; U Phencyclidine Screen Not Detected
[2024-05-23 02:30] LABS: Appearance, Urine Hazy (Clear); Color, Urine Yellow (P-Yellow)
[2024-05-23 02:32] LABS: Bacteria Few /hpf; Red Blood Cells, Urine 0-2 /hpf (0-2); Squamous Epithelial Cells Rare /hpf (Few); White Blood Cells, Urine 0-2 /hpf (0-5)
[2024-05-23 03:04] LABS: Influenza A, PCR NEGATIVE (NEGATIVE); Influenza B, PCR NEGATIVE (NEGATIVE); Resp Syncytial Virus, PCR NEGATIVE (NEGATIVE); SARS-Cov-2 (COVID-19) PCR, MMC NEGATIVE (NEGATIVE)
[2024-05-23 03:53] LABS: Salicylate <1.7 mg/dL (2.8-20.0)
[2024-05-23 04:01] LABS: Alanine Aminotransfer (ALT/SGP 35 U/L (12-78); Albumin, Blood 3.5 g/dL (3.4-5.0); Alk Phos 149 U/L (50-136); Anion Gap 15 mmol/L (3-11); Aspartate Aminotrans (AST/SGOT 67 U/L (12-37); Bilirubin, Total 1.4 mg/dL (0.1-1.0); Blood Urea Nitrogen 25 mg/dL (8-24); Bun/Creatinine Ratio 24.5 (12.0-20.0); CO2, Blood 24 mmol/L (21-32); Calcium, Blood 8.7 mg/dL (8.5-10.1); Chloride, Blood 92 mmol/L (98-108); Creatinine, Blood 1.02 mg/dL (0.60-1.20); Ethanol (Alcohol), Blood, Med <3 mg/dL; Globulin, Blood 3.6 g/dL (2.2-4.0); Glomerular Filtration Rate 71 (60-); Glucose, Blood 117 mg/dL (70-99); Potassium, Blood 5.5 mmol/L (3.5-5.5); Sodium, Blood 125 mmol/L (136-145); Total Protein, Blood 7.1 g/dL (6.4-8.2)
[2024-05-23 04:02] LABS: Acetaminophen, Random <2.0 ug/mL (10.0-30.0)
[2024-05-23] MEDS ORDERED: FLU VACC TS2024-25(6MOS UP)/PF 45 MCG/0.5 ML SYRINGE IM ONE (05:20)
[2024-05-23] MEDS ORDERED: Naloxone HCL 4 MG SPRAY (1 UNIT) ONE (06:00)
[2024-05-23] MEDS ORDERED: NS 1,000 ML IV SCH (06:05)
[2024-05-23] MEDS ORDERED: Furosemide 10 MG / ML 2ML Vial IV ONE (10:20)
[2024-05-23] MEDS ORDERED: OxyCODONE HCL 5 MG TAB PO PRN (10:55)
--- NOTE | 2024-05-23 12:00 | NUR ---
ADMISSION NOTE PATIENT
[2024-05-23 12:13] VITALS: BP 115/69
[2024-05-23 14:37] VITALS: BP 129/77
[2024-05-23 14:49] VITALS: BP 129/77
[2024-05-23] MEDS ORDERED: Warfarin Sodium 4 MG Tab PO SCH (18:00)
--- NOTE | 2024-05-23 18:48 | NUR ---
SHIFT SUMMARY PATIENT A/OX2, PLEASANT AND COOPERATIVE WITH STAFF, ABLE TO MAKE NEEDS KNOWN. ECHO OBTAINED THIS SHIFT AND DIET ORDERED, PATIENT TOLERATING WELL. COMPLAINING OF BACK PAIN, MEDICATED PER MAR. CONTINUES WITH CONFUSION, AND Q4H NEURO CHECKS. SON, LUCY AND DAUGHTER IN [place], [place], AT BEDSIDE MOST OF THIS AFTERNOON AND UPDATED REGARDING PATIENT STATUS AND TEST RESULTS. NO OTHER CONCERNS AT THIS TIME.
[2024-05-23 19:42] VITALS: BP 133/80
[2024-05-24 02:43] VITALS: BP 139/85
[2024-05-24] MEDS ORDERED: Furosemide 10 MG/ML 10ML Vial IV ONE (03:20)
[2024-05-24 06:06] LABS: BASOPHILS ABSOLUTE AUTO 0.06 K/mm3 (0.00-0.23); BASOPHILS PERCENT AUTO 1 % (0-2); EOSINOPHILS ABSOLUTE AUTO 0.16 K/mm3 (0.00-0.68); EOSINOPHILS PERCENT AUTO 2 % (0-6); Hematocrit 42.6 % (37.0-53.0); IMMATURE GRAN ABSOLUTE AUTO 0.06 K/mm3 (0.00-0.10); IMMATURE GRAN PERCENT AUTO 1 % (0-1); LYMPHOCYTES ABSOLUTE AUTO 1.38 K/mm3 (0.84-5.20); LYMPHOCYTES PERCENT AUTO 14 % (21-46); MONOCYTES ABSOLUTE AUTO 1.86 K/mm3 (0.16-1.47); MONOCYTES PERCENT AUTO 18 % (4-13); Mean Corpuscular HGB 27.5 pg (26.0-34.0); Mean Corpuscular HGB Conc 32.9 g/dL (31.5-36.5); Mean Corpuscular Volume 84 fL (80-100); Mean Platelet Volume 11.1 fL (9.1-12.4); NEUTROPHILS ABSOLUTE AUTO 6.63 K/mm3 (1.96-9.15); NEUTROPHILS PERCENT AUTO 65 % (41-73); Platelet Count 154 K/mm3 (150-400); RDW Coefficient Variation 17.7 % (11.7-14.2); RDW Standard Deviation 51.8 fL (35.1-46.3); White Blood Cell Count 10.15 K/mm3 (4.00-11.30)
--- NOTE | 2024-05-24 06:15 | NUR ---
MOBILE ARCHITECT SUMMARY PT A/OX2. PT IS ABLE TO TELL HIS NAME. SPEECH IS SLURRED. AT START OF SHIFT PT DIFFICULT TO AROUSE WITH MARKED CONFUSION; PT SLEEPY. PT MORE ALERT/AWAKE A FEW HOURS INTO SHIFT WITH IMPROVED RESPOSES TO QUESTIONS/DIRECTINS. PT IS ABLE TO FOLLOW DIRECTIONS WITH ASSIST/CUES. PT WAKEFUL T/O THE NIGHT AND CONFUSED ABOUT DAY/NIGHT TIME. REORIENTED PT TO TIME; PT TOLERATING WELL. Q2 TURNS AND Q4 NEURO CHECKS COMPLETE T/O THE SHIFT. PT REMAINS VERY EDEMATOUS/ANASARCA TO THIGHS, BACK, AND ABD. DAILY WEIGHT SHOWS 2.5LB WEIGHT GAIN. PT URINE OUTPUT FOR NIGHT WAS APROX 600MLS. LUNGS SOUND DIMINISHED IN THE BASES WITH FINE CRACKLES. PT TAKING 40MG BID OF LASIX AT HOME. PT RECEIVED 20ML IV ONE TIME SINCE ADMIT. CALL TO HOSPITALIST WITH CONCERNS FOR FLUID OVERLOAD, LOW URINE OUTPUT, WEIGHT GAIN, AND NEED FOR TELE. NEW ORDER FOR 1X DOSE NOW OF 60MG LASIX, RESTART ORAL LASIX OF 40MG BID, AND ADD TELE. LASIX ADMISTERED AND URINE OUTPUT ALMOST 1200 IN NEXT 2 HOURS. PT ON 2LPM O2; PT IS SOB WITH EXERTION. PT REMAINS ON BEDRESET. PUREWICK IN PLACE. PT IS AFIB ON TELE WITH PVC AND VARIABLE RATE 60-80'S. CALL LIGHT ACCESSIBLE. REGULAR INTERVAL ROUNDING COMPLETE TO ASSESS NEEDS.
[2024-05-24 06:19] LABS: International Normalized Ratio 3.07; Prothrombin Time Results 30.2 Sec (9.7-11.5)
[2024-05-24 06:32] LABS: Albumin, Blood 3.3 g/dL (3.4-5.0); Albumin/Globulin Ratio 0.9 (0.8-1.8); Bilirubin, Total 0.8 mg/dL (0.1-1.0); Bun/Creatinine Ratio 23.8 (12.0-20.0); Calcium, Blood 8.8 mg/dL (8.5-10.1); Creatinine, Blood 1.01 mg/dL (0.60-1.20); Globulin, Blood 3.6 g/dL (2.2-4.0); Total Protein, Blood 6.9 g/dL (6.4-8.2)
[2024-05-24 07:07] VITALS: BP 128/73
[2024-05-24] MEDS ORDERED: Furosemide 40 MG Tab PO SCH (09:00)
[2024-05-24 15:52] VITALS: BP 116/68
[2024-05-24] MEDS ORDERED: OxyCODONE HCL 5 MG TAB PO PRN (17:55)
[2024-05-24] MEDS ORDERED: Furosemide 10 MG/ML 4ML Vial IV SCH (18:00)
[2024-05-24] MEDS ORDERED: Warfarin Sodium 1 MG Tab PO SCH (18:00)
--- NOTE | 2024-05-24 18:34 | NUR ---
SHIFT SUMMARY PATIENT A/OX2-3 THROUGHOUT SHIFT, ABLE TO MAKE NEEDS KNOWN. PLEASANT AND COOPERATIVE WITH CARE, BUT FORGETFUL. MALE PUREWICK IN PLACE. ABLE TO PARTICIPATE IN PHYSICAL THERAPY AND HAD A SHOWER WITH ASSISTANCE FROM PSYCH TECH. TELEMETRY IN PLACE, NO EVENTS NOTED THIS SHIFT. MEDICATED WITH OXYCODONE X3 THIS SHIFT PER ORDER. OXYCODONE HAS BEEN INCREASED TO 7.5MG Q4H LATE THIS EVENING. IV LASIX ADMINISTERED PER SEP. FAMILY AT BEDSIDE THIS AFTERNOON AND UPDATED ON PATIENT STATUS. TITRATED OFF OF SUPPLEMENTAL OXYGEN, TOLERATING ROOM AIR WELL. CONTINUOUS PULSE OX IN PLACE, SP02 WNL ON ROOM AIR. NO OTHER CONCERNS AT THIS TIME.
[2024-05-24 21:11] VITALS: BP 126/75
--- NOTE | 2024-05-25 03:42 | NUR ---
PATIENT'S FAMILY AT BEDSIDE AT BEGINNING OF SHIFT. FAMILY STATED THEY SPOKE WITH THE DOCTOR TODAY ABOUT THE PATIENT HAVING ADDITIONAL IMAGING OF THE RIGHT LEG WHICH IS SLIGHTLY MORE SWOLLEN THAN THE LEFT AND SOURCE OF CONTINUING DISCOMFORT TO THE PATIENT. ADVISED NO NOTES IN THE CHART ABOUT ADDITIONAL IMAGING. ADVISED WOULD ADD TO PT GOALS AND ADVISE DAY NURSE FOR FOLLOW UP IN THE MORNING. ASSESSED PT LEGS; CIRCULATION AND SENSATION INTACT TO BLE. WARM TO TOUCH.
[2024-05-25 04:52] VITALS: BP 133/77
[2024-05-25 05:02] LABS: BASOPHILS ABSOLUTE AUTO 0.05 K/mm3 (0.00-0.23); BASOPHILS PERCENT AUTO 1 % (0-2); EOSINOPHILS ABSOLUTE AUTO 0.11 K/mm3 (0.00-0.68); EOSINOPHILS PERCENT AUTO 1 % (0-6); Hematocrit 40.4 % (37.0-53.0); Hemoglobin 13.5 g/dL (13.5-17.5); IMMATURE GRAN ABSOLUTE AUTO 0.03 K/mm3 (0.00-0.10); IMMATURE GRAN PERCENT AUTO 0 % (0-1); LYMPHOCYTES ABSOLUTE AUTO 1.41 K/mm3 (0.84-5.20); LYMPHOCYTES PERCENT AUTO 15 % (21-46); MONOCYTES ABSOLUTE AUTO 1.79 K/mm3 (0.16-1.47); MONOCYTES PERCENT AUTO 19 % (4-13); Mean Corpuscular HGB 27.2 pg (26.0-34.0); Mean Corpuscular HGB Conc 33.4 g/dL (31.5-36.5); Mean Corpuscular Volume 82 fL (80-100); Mean Platelet Volume 10.3 fL (9.1-12.4); NEUTROPHILS ABSOLUTE AUTO 5.96 K/mm3 (1.96-9.15); NEUTROPHILS PERCENT AUTO 64 % (41-73); Platelet Count 144 K/mm3 (150-400); RDW Coefficient Variation 17.8 % (11.7-14.2); Red Blood Cell Count 4.96 M/mm3 (4.30-5.90); White Blood Cell Count 9.35 K/mm3 (4.00-11.30)
[2024-05-25 05:14] LABS: International Normalized Ratio 3.23; Prothrombin Time Results 31.7 Sec (9.7-11.5)
[2024-05-25 05:35] LABS: Albumin, Blood 3.4 g/dL (3.4-5.0); Bilirubin, Total 0.8 mg/dL (0.1-1.0); Bun/Creatinine Ratio 25.5 (12.0-20.0); Creatinine, Blood 0.94 mg/dL (0.60-1.20); Globulin, Blood 3.5 g/dL (2.2-4.0); Potassium, Blood 3.5 mmol/L (3.5-5.5); Total Protein, Blood 6.9 g/dL (6.4-8.2)
--- NOTE | 2024-05-25 06:31 | NUR ---
TITLE CLOSER SUMMARY NO ACUTE CHANGES. PT CONTINUES TO C/O OF PAIN IN RIGHT HIP/GROIN AREA. PAIN MED PER SEP. PT INITALLY REQUESTED MEDICATION FOR SLEEP AND STATED HE WAS UNABLE TO SLEEP. PT STATED HE HAS USED MELATONIN IN THE PAST WITH NO EFFECT. PT AGREEABLE TO SHUTTING OFF TV AND LIGHTS. WHEN THIS RN RETURNED TO CHECK ON PT HE WAS SLEEPING. PT DID SLEEP MOST OF THE NIGHT WITH INTERMITANT WAKING. PT ASSISTED TO BATHROOM FOR LARGE BM. PUREWICK IN PLACE T/O THE NIGHT. IN/OUT BEING MEASURED. CALL LIGHT ACCESSIBLE. PT MENTATION AND ORIENTATION SEEMS SLIGHTLY CLEARER THAN PREVIOUS NIGHT WTIH PT.
[2024-05-25 07:00] VITALS: BP 144/81
[2024-05-25] MEDS ORDERED: Carvedilol 3.125 MG Tab PO SCH (08:00)
[2024-05-25] MEDS ORDERED: Aspirin 81 MG Chew PO SCH (09:00)
[2024-05-25 14:48] VITALS: BP 123/65
--- NOTE | 2024-05-25 17:45 | NUR ---
SHIFT SUMMARY PATIENT A/OX2-3 THROUGHOUT SHIFT, FORGETFUL AND INTERMITTENTLY CONFUSED. ABLE TO TRANSFER TO CHAIR WITH 1 PERSON ASSIST. OXYCODONE ADMINISTERED X3 THIS SHIFT FOR BACK AND HIP PAIN, EFFECTIVE IN MANAGING PAIN. TELEMETRY IN PLACE, NO EVENTS NOTED. MALE PUREWICK IN PLACE DUE TO URGENCY AND INCONTINENCE. PATIENT CONTINUES WITH 2LPM SUPPLEMENTAL OXYGEN VIA NASAL CANNULA, SPO2 WNL. PATIENT WITH DYSPNEA AT REST. FAMILY VISITED THROUGHOUT THE SHIFT AND UPDATED ON PATIENT STATUS. NO OTHER CONCERNS AT THIS TIME.
[2024-05-25 21:58] VITALS: BP 149/74
[2024-05-26 05:20] LABS: BASOPHILS ABSOLUTE AUTO 0.06 K/mm3 (0.00-0.23); BASOPHILS PERCENT AUTO 1 % (0-2); EOSINOPHILS ABSOLUTE AUTO 0.22 K/mm3 (0.00-0.68); EOSINOPHILS PERCENT AUTO 3 % (0-6); Hematocrit 43.7 % (37.0-53.0); Hemoglobin 13.9 g/dL (13.5-17.5); IMMATURE GRAN ABSOLUTE AUTO 0.03 K/mm3 (0.00-0.10); IMMATURE GRAN PERCENT AUTO 0 % (0-1); LYMPHOCYTES ABSOLUTE AUTO 1.28 K/mm3 (0.84-5.20); LYMPHOCYTES PERCENT AUTO 18 % (21-46); MONOCYTES ABSOLUTE AUTO 1.44 K/mm3 (0.16-1.47); MONOCYTES PERCENT AUTO 20 % (4-13); Mean Corpuscular HGB 27.1 pg (26.0-34.0); Mean Corpuscular HGB Conc 31.8 g/dL (31.5-36.5); Mean Corpuscular Volume 85 fL (80-100); Mean Platelet Volume 10.5 fL (9.1-12.4); NEUTROPHILS ABSOLUTE AUTO 4.17 K/mm3 (1.96-9.15); NEUTROPHILS PERCENT AUTO 58 % (41-73); Platelet Count 144 K/mm3 (150-400); RDW Coefficient Variation 17.7 % (11.7-14.2); RDW Standard Deviation 55.2 fL (35.1-46.3); Red Blood Cell Count 5.12 M/mm3 (4.30-5.90)
[2024-05-26 05:33] LABS: International Normalized Ratio 2.24; Prothrombin Time Results 22.6 Sec (9.7-11.5)
[2024-05-26 05:45] LABS: Albumin, Blood 3.5 g/dL (3.4-5.0); Bilirubin, Total 0.7 mg/dL (0.1-1.0); Bun/Creatinine Ratio 21.1 (12.0-20.0); Calcium, Blood 9.2 mg/dL (8.5-10.1); Creatinine, Blood 0.99 mg/dL (0.60-1.20); Globulin, Blood 3.6 g/dL (2.2-4.0); Potassium, Blood 3.7 mmol/L (3.5-5.5); Total Protein, Blood 7.1 g/dL (6.4-8.2)
[2024-05-26 06:09] VITALS: BP 155/89
--- NOTE | 2024-05-26 06:22 | NUR ---
SENIOR CLINICAL CONSULTANT SUMMARY PT A&OX 2-3. MUMBLED SPEECH. PT IS IMPULSIVE AND FORGETFUL AND ATTEMPTED MULTIPLE TIMES TO GET OOB. MALE PUREWICK CHANGED PRN. PT MEDICATED WITH PRN OXYCODONE ORDERED IN EMAR FOR LOW BACK AND HIP PAIN; INTERVENTIONS EFFECTIVE. TELEMETRY IN PLACE, NO EVENTS NOTED. PT NOTED WITH DYSPNEA AT REST, SUPPLEMENTAL OXYGEN AT 2LPM VIA NASAL CANNULA CONTINUES; SATS WNL. BED LOCKED AND IN LOWEST POSITION. ONGOING CARES CONTINUE ORDERED.
[2024-05-26 07:45] VITALS: BP 161/105
--- NOTE | 2024-05-26 09:00 | NUR ---
pt laying in bed awake, a/ox2-3, can answer some questions, impulsive, follows some directions, lungs are clear in upper walker, dim with fine crackles in bases, resp even and unlabored, no cough noted, hrirr, distant, tele in place running afib with bbb in the 60's, +1 edema noted to b/l le, edema more pronounced up to hips, eben on right side, ppp unable to be palpated, cap refill < 3sec, vs stable, afebrile, piv to left wrist, site is clear and patent, btx4, abd flat soft nontender, has male purwick in place, skin has pink b/l le, is a one person assisst with walker to ambulate, michelle, call light in reach.
--- NOTE | 2024-05-26 09:45 | NUR ---
pt yelling out in pain holding his right hip, medicated with 7.5mg oxy, took po meds without diff, will place kpad for comfort, call light in reach.
--- NOTE | 2024-05-26 10:12 | NUR ---
pp found on left side via doppler, right side is cold to touch, unable to find pulse via doppler. heat pad applied to right hip for comfort. call light in reach.
--- NOTE | 2024-05-26 10:54 | NUR ---
1015 spoke with rn maria del carmen wall regarding unable to feel pulses or find doppler pulses. right foot cooler than left and pt reports painful also pinker in color than left foot i was unable to find doppler pulses. notified dr cheatham re pain, discoloration and lack of doppler pulse
--- NOTE | 2024-05-26 14:38 | NUR ---
pt had doppler done, and is going for hip xray via [facility].
[2024-05-26 15:34] VITALS: BP 118/63
[2024-05-26] MEDS ORDERED: Warfarin Sodium 2 MG Tab PO SCH (18:00)
--- NOTE | 2024-05-26 18:07 | NUR ---
pt has been doing good with pain most of the shift after being medicated this am, he got pretty aggitated this evening and found his pain was rated at 10/10, he was medicated and got him up to the chair, instructed to let nurse know before he gets to a 10. no further changes this shift. call light in reach.
[2024-05-26 19:24] VITALS: BP 107/64
[2024-05-27 02:13] VITALS: BP 143/107
--- NOTE | 2024-05-27 05:01 | NUR ---
CHIEF SERVICE OBSERVER SUMMARY PT A&O X3, DOES HAVE INTERMITTENT CONFUSION WITH AGITATION. MUMBLED SPEECH. PT NOTED TO BE IMPULSIVE WITH ATTEMPTING TO GET OOB MULTIPLE TIMES THROUGHOUT SHIFT. THIS IS NOTED TO BE AROUNT TOILETING / PAIN NEEDS. STAFF HAVE OFFERED FOOD, TOILETING AND PAIN MEDICATION WITH GOOD RESULTS. PT C/O PAIN TO MID BACK AND R HIP. PT MEDICATED FOR PAIN THROUGHOUT SHIFT WITH PRN OXYCODONE 7.5MG PER EMAR ORDERS, EFFECTIVE. MALE PUREWICK IN PLACE FOR URGENCY AND INCONTINENCE; NEW APPLIANCE PLACED 05/27/24. PUREWICK DRAINING YELLOW URINE. TELEMETRY IN PLACE. THIS NURSE NOTIFIED OF 6 RUN OF V-TACH AT BEGINNING OF SHIFT, PT ASYMPTOMATIC WITH NO FURTHER INCIDENTS NOTED. PT BED LOCKED AND IN LOWEST POSITION, BED ALARM ON. CONTINUE CARES ORDERED.
[2024-05-27 05:26] LABS: BASOPHILS ABSOLUTE AUTO 0.07 K/mm3 (0.00-0.23); BASOPHILS PERCENT AUTO 1 % (0-2); EOSINOPHILS ABSOLUTE AUTO 0.24 K/mm3 (0.00-0.68); EOSINOPHILS PERCENT AUTO 3 % (0-6); Hematocrit 42.8 % (37.0-53.0); Hemoglobin 13.3 g/dL (13.5-17.5); IMMATURE GRAN ABSOLUTE AUTO 0.04 K/mm3 (0.00-0.10); IMMATURE GRAN PERCENT AUTO 1 % (0-1); LYMPHOCYTES ABSOLUTE AUTO 1.88 K/mm3 (0.84-5.20); LYMPHOCYTES PERCENT AUTO 21 % (21-46); MONOCYTES PERCENT AUTO 17 % (4-13); Mean Corpuscular HGB 27.2 pg (26.0-34.0); Mean Corpuscular HGB Conc 31.1 g/dL (31.5-36.5); Mean Corpuscular Volume 88 fL (80-100); Mean Platelet Volume 10.4 fL (9.1-12.4); NEUTROPHILS ABSOLUTE AUTO 5.05 K/mm3 (1.96-9.15); NEUTROPHILS PERCENT AUTO 58 % (41-73); Platelet Count 145 K/mm3 (150-400); RDW Coefficient Variation 17.9 % (11.7-14.2); RDW Standard Deviation 56.1 fL (35.1-46.3); Red Blood Cell Count 4.89 M/mm3 (4.30-5.90); White Blood Cell Count 8.78 K/mm3 (4.00-11.30)
[2024-05-27 05:43] LABS: International Normalized Ratio 1.88; Prothrombin Time Results 19.2 Sec (9.7-11.5)
[2024-05-27 05:50] LABS: Albumin, Blood 3.4 g/dL (3.4-5.0); Albumin/Globulin Ratio 0.9 (0.8-1.8); Bilirubin, Total 0.7 mg/dL (0.1-1.0); Bun/Creatinine Ratio 22.2 (12.0-20.0); Creatinine, Blood 0.86 mg/dL (0.60-1.20); Globulin, Blood 3.7 g/dL (2.2-4.0); Potassium, Blood 4.1 mmol/L (3.5-5.5); Total Protein, Blood 7.1 g/dL (6.4-8.2)
[2024-05-27 07:54] VITALS: BP 156/78
[2024-05-27] MEDS ORDERED: OxyCODONE HCL 5 MG TAB PO PRN (11:20)
[2024-05-27 16:10] VITALS: BP 117/58
--- NOTE | 2024-05-27 17:31 | NUR ---
REPORT RECEIVED VERIFIED A/O 2-4 VERY PLEASENT YET VERY FORGETFUL BUT FOLLOWS COMMANDS, PT NOT ABLE TO MAKE NEEDS KNOWN SO STAFF OFTEN CHECKING IN WITH PT WHEN SON NOT AT BEDSIDE. DR COCHRAN IN TO SEE PT, PT VERY SLEEPY BUT AROUSABLE, MEDICATION LOWERED. PT ABLE TO TRANSFER WITH STANDBY ASSIST TO COMMODE, ONCE BACK TO BED PT WAS MORE AWAKE AND WAS ABLE TO FEED SELF
[2024-05-27] MEDS ORDERED: Warfarin Sodium 4 MG Tab PO ONE (18:00)
--- NOTE | 2024-05-27 19:15 | NUR ---
RECEIVED REPORT FROM LUIS LONG. LUIS JALLOH WILL ASSUME CARE AT [address] [facility].
[2024-05-27 19:42] VITALS: BP 156/92
--- NOTE | 2024-05-27 20:15 | NUR ---
REPORT GIVEN TO LUIS JALLOH.
[2024-05-28 02:15] VITALS: BP 132/80
[2024-05-28] MEDS ORDERED: OxyCODONE HCL 5 MG TAB PO ONE ×2 (04:25→17:45)
--- NOTE | 2024-05-28 05:14 | NUR ---
FIRER LOCOMOTIVE CRANE SUMMARY PT WAKEFUL T/O THE NIGHT. VERY SHORT INTERMITTANT SLEEP. PT IS A/OX2-3; CONFUSED ABOUT NIGHT AND DAY. HOWEVER, PT IS VERY PAINFUL. PT GIVEN 5MG OXY PRN WITH LITTLE EFFECT. PT LOWEST PAIN ON NUMBER SCALE IS 8. PT OFF AND ON CRYING OUT AND MOANING WITH PAIN; PT BECOMING AGITATED WITH LACK OF PAIN CONTROL AND THREATENING VIOLENCE AGAINST STAFF. PT IS REDIRECTS WELL AND AGITATION WORSENS IN INTENSIFIED PAIN. CALL TO HOSPITALIST TO DISCUSS PAIN CONCERNS. NEW ORDER FOR 1X DOSE OF OXYCODONE 5MG. DAY SHIFT REPORTS PT IS LETHARGIC--LIKELY BECAUSE THE PT IS NOT SLEEPING AT NIGHT. PT ALSO HAS GOOD APPETITE AT NIGHT AND REQUESTING MULTIPLE SNACKS T/O THE NIGHT. PT UP TO BATHROOM--LARGE FORMED BM. PT REMAINS ON TELE WITH NO EVENTS THIS SHIFT. CALL LIGHT ACCESSIBLE. BED ALARM IN PLACE.
[2024-05-28 05:15] LABS: BASOPHILS ABSOLUTE AUTO 0.07 K/mm3 (0.00-0.23); BASOPHILS PERCENT AUTO 1 % (0-2); EOSINOPHILS ABSOLUTE AUTO 0.18 K/mm3 (0.00-0.68); EOSINOPHILS PERCENT AUTO 2 % (0-6); Hematocrit 42.9 % (37.0-53.0); Hemoglobin 13.5 g/dL (13.5-17.5); IMMATURE GRAN ABSOLUTE AUTO 0.03 K/mm3 (0.00-0.10); IMMATURE GRAN PERCENT AUTO 0 % (0-1); LYMPHOCYTES ABSOLUTE AUTO 1.43 K/mm3 (0.84-5.20); LYMPHOCYTES PERCENT AUTO 18 % (21-46); MONOCYTES ABSOLUTE AUTO 1.34 K/mm3 (0.16-1.47); MONOCYTES PERCENT AUTO 17 % (4-13); Mean Corpuscular HGB 27.6 pg (26.0-34.0); Mean Corpuscular HGB Conc 31.5 g/dL (31.5-36.5); Mean Corpuscular Volume 88 fL (80-100); Mean Platelet Volume 10.1 fL (9.1-12.4); NEUTROPHILS PERCENT AUTO 62 % (41-73); Platelet Count 138 K/mm3 (150-400); RDW Coefficient Variation 17.5 % (11.7-14.2); RDW Standard Deviation 55.6 fL (35.1-46.3); White Blood Cell Count 7.95 K/mm3 (4.00-11.30)
[2024-05-28 05:29] LABS: International Normalized Ratio 1.76; Prothrombin Time Results 18.1 Sec (9.7-11.5)
[2024-05-28 05:40] LABS: Albumin, Blood 3.4 g/dL (3.4-5.0); Bilirubin, Total 0.7 mg/dL (0.1-1.0); Bun/Creatinine Ratio 17.7 (12.0-20.0); Creatinine, Blood 0.96 mg/dL (0.60-1.20); Globulin, Blood 3.3 g/dL (2.2-4.0); Potassium, Blood 3.9 mmol/L (3.5-5.5); Total Protein, Blood 6.7 g/dL (6.4-8.2)
[2024-05-28 07:22] VITALS: BP 136/78
[2024-05-28] MEDS ORDERED: Furosemide 10 MG/ML 4ML Vial IV SCH (09:00)
[2024-05-28] MEDS ORDERED: AcetaZOLAMIDE 250 MG Tab PO SCH (09:00)
[2024-05-28] MEDS ORDERED: TiZANidine HCl 4 MG Tab PO PRN (10:35)
[2024-05-28] MEDS ORDERED: DULOXETINE HCL60 M1 PO (11:47)
[2024-05-28] MEDS ORDERED: TAMSULOSIN HCL0.4 M1 PO (11:48)
[2024-05-28] MEDS ORDERED: EUTHYROX25 MC1 PO (11:49)
[2024-05-28] MEDS ORDERED: PRAVASTATIN SOD40 MG PO (11:50)
[2024-05-28] MEDS ORDERED: EZETIMIBE10 M6 PO (11:50)
[2024-05-28 14:49] VITALS: BP 139/77
--- NOTE | 2024-05-28 14:56 | NUR ---
PT DOING WELL AWAITING DISCHARGE. 1300 CHAIR FOR DIALYSIS RECEIVED, PT ARRANGED RIDE TO [facility] FOR PAPER WORK VERIFICATION. 1500 DISCHARGE ORDERS EXPLAINED TO PT AND EXPRESSED UNDERSTANDING . IV DCED PT DCED
[2024-05-28] MEDS ORDERED: Warfarin Sodium 3 MG Tab PO SCH (18:00)
[2024-05-28 19:24] VITALS: BP 89/58
--- NOTE | 2024-05-28 19:24 | NUR ---
REPORT RECEIVED VERIFIED PT VSS AND SLEEPING, NEW IV STARTED TO LEFT FA. ORTHO CONSULT INTO SEE PT TODAY, NO NEW ODERS GIVEN NO SX TO BE HAD PT ABLE TO APPLY FULL WEIGHT BARING TO LEG. DR COCHRAN AT BEDSIDE SPEAKING WITH SON. PT ENC TO SIT IN CHAIR FOR MEALS OR WHEN ANXIOUS. PURWIC REAPPLIED DUE TO PAIN, THERE WASNT ANY NOTED BREAKDOWN TO SCROTUM, PT DAIN WELL
[2024-05-28 19:57] VITALS: BP 101/55
[2024-05-28] MEDS ORDERED: QUEtiapine Fumarate 25 MG Tab PO SCH (21:00)
[2024-05-29 04:03] VITALS: BP 121/76
--- NOTE | 2024-05-29 04:21 | NUR ---
COMPUTER OPERATIONS SPECIALIST SUMMARY BP LOW AT SHIFT COMMENCE, FEET ELEVATED AND BP TRENDED UP HOFFMAN TO WNL, (STARTED 89/58 - 101/55 THEN LATER 121/76). PAIN MED FOR HIP PAIN ADMINISTERED X 1, MED EFFECTIVE. CONFUSION CONTINUES, REDIRECTION MULTIPLE TIMES AND STILL SOME AGITATION, TO COMPLY WITH DIRECTIONS. MALE PUREWICK IN PLACE, RESPS EVEN. VSS AT THIS TIME. HAS BEEN RESTING QUIETLY WITH A FEW INTERRUPTIONS - SEE ABOVE NOTATION. CALL LIGHT IN REACH, RAILS UP X 3 AND BED IN LOW POSITION FOR SAFETY. WILL CONTINUE TO MONITOR
[2024-05-29 05:03] LABS: International Normalized Ratio 1.91; Prothrombin Time Results 19.5 Sec (9.7-11.5)
[2024-05-29 07:42] VITALS: BP 126/78
[2024-05-29] MEDS ORDERED: OxyCODONE HCL 5 MG TAB PO ONE (12:40)
[2024-05-29 13:14] LABS: Bun/Creatinine Ratio 22.3 (12.0-20.0); Calcium, Blood 9.1 mg/dL (8.5-10.1); Creatinine, Blood 0.9 mg/dL (0.60-1.20); Potassium, Blood 3.7 mmol/L (3.5-5.5)
[2024-05-29 15:39] VITALS: BP 122/70
[2024-05-29] MEDS ORDERED: Warfarin Sodium 4 MG Tab PO SCH (18:00)
--- NOTE | 2024-05-29 19:30 | NUR ---
report received verified, pt doing much better is alert and awake and was enc to sit up for breakfast. possible discharge tomorrow per md family and emergency care attendant aware and are will to take pt home. pt not diariesing as much and urine is becoming darker. pt/ ot worked with PT today and note he is possibly back to his base line. i will cont monitoring, no events this evening.
[2024-05-29 20:07] VITALS: BP 109/60
[2024-05-29] MEDS ORDERED: Polyethylene Glycol 3350 17 gm PO SCH (21:00)
[2024-05-30] MEDS ORDERED: QUEtiapine Fumarate 50 MG TAB PO PRN (01:05)
[2024-05-30] MEDS ORDERED: QUEtiapine Fumarate 25 MG Tab PO ONE (02:00)
[2024-05-30] MEDS ORDERED: Melatonin 5 MG Tablet PO SCH (02:00)
[2024-05-30 04:51] VITALS: BP 111/72
[2024-05-30 05:08] LABS: BASOPHILS ABSOLUTE AUTO 0.08 K/mm3 (0.00-0.23); BASOPHILS PERCENT AUTO 1 % (0-2); EOSINOPHILS ABSOLUTE AUTO 0.26 K/mm3 (0.00-0.68); EOSINOPHILS PERCENT AUTO 4 % (0-6); Hematocrit 40.3 % (37.0-53.0); Hemoglobin 12.7 g/dL (13.5-17.5); IMMATURE GRAN ABSOLUTE AUTO 0.02 K/mm3 (0.00-0.10); IMMATURE GRAN PERCENT AUTO 0 % (0-1); LYMPHOCYTES ABSOLUTE AUTO 1.52 K/mm3 (0.84-5.20); LYMPHOCYTES PERCENT AUTO 24 % (21-46); MONOCYTES ABSOLUTE AUTO 1.08 K/mm3 (0.16-1.47); MONOCYTES PERCENT AUTO 17 % (4-13); Mean Corpuscular HGB 27.3 pg (26.0-34.0); Mean Corpuscular HGB Conc 31.5 g/dL (31.5-36.5); Mean Corpuscular Volume 87 fL (80-100); Mean Platelet Volume 10.7 fL (9.1-12.4); NEUTROPHILS PERCENT AUTO 53 % (41-73); Platelet Count 116 K/mm3 (150-400); RDW Coefficient Variation 17.5 % (11.7-14.2); RDW Standard Deviation 54.9 fL (35.1-46.3); Red Blood Cell Count 4.65 M/mm3 (4.30-5.90); White Blood Cell Count 6.36 K/mm3 (4.00-11.30)
--- NOTE | 2024-05-30 05:19 | NUR ---
SHIFT SUMMARY NOC PT A/O TO SELF . AT TIMES VERY CONFUSED AND IMPULSIVE PULLING AT LINES AND ATTEMPTING OOB UNSAFE. PT ABLE TO SLEEP FOR FIRST 5 HOURS OF SHIFT AFTER RECEIVING SCHEDULED SEROQUEL AND PRN ZANAFLEX. PT THEN BECAME PAINFUL AND AGITATED AND GIVEN OXY WHICH LASTED LESS THAN AN HOUR FOR EFFECT. HOSPITALIS CALLED AND NOTIFIED PT PULLING AT LINES AND OOB UNSAFE. ONE TIME ADDITIONAL DOSE OF SEROQUEL GIVEN ALONG WITH MELATONIN. PT ABLE TO FALL BACK ASLEEP. PT VSS ON TELE AFIB IN 'S. PUREWICK STILL IN PLACE FOR URGENCY, INCONTINENCE. PT DAUGHTER WANTED MD TO CALL WHEN THEY ROUND IN AM, WILL PASS ALONG TO DAY RN. PT STILL REQUIRING 2L/NC TO MAINTAIN SPO2 >92%. PT POSSIBLE DISCHARGE HOME TODAY, BUT WILL PROBABLY NEED HOME O2 EVALUATION FIRST. PT CURRENTLY RESTING WITH BED ALARM ON, BED IN LOWEST POSITION, AND CALL LIGHT WITHIN REACH.
[2024-05-30 05:20] LABS: International Normalized Ratio 2.09; Prothrombin Time Results 21.2 Sec (9.7-11.5)
[2024-05-30 05:35] LABS: Albumin, Blood 3.1 g/dL (3.4-5.0); Albumin/Globulin Ratio 0.9 (0.8-1.8); Bilirubin, Total 0.8 mg/dL (0.1-1.0); Bun/Creatinine Ratio 23.5 (12.0-20.0); Calcium, Blood 9.1 mg/dL (8.5-10.1); Creatinine, Blood 0.98 mg/dL (0.60-1.20); Globulin, Blood 3.5 g/dL (2.2-4.0); Potassium, Blood 3.9 mmol/L (3.5-5.5); Total Protein, Blood 6.6 g/dL (6.4-8.2)
[2024-05-30 07:21] VITALS: BP 131/66
[2024-05-30 07:48] VITALS: BP 134/73
[2024-05-30 11:52] VITALS: BP 147/78
[2024-05-30] MEDS ORDERED: Morphine Sulfate 20 MG/1ML 1 ML Oral Syringe PO PRN (14:00)
[2024-05-30] MEDS ORDERED: Morphine Sulfate 20 MG/1ML 1 ML Oral Syringe PO ONE (14:00)
[2024-05-30 15:51] VITALS: BP 119/75
--- NOTE | 2024-05-30 17:04 | NUR ---
Met with pt, his daughter in law and son. They have had some time to think about it, and have decided to pursue hospice care for the patient. They have discussed this with Dr. Latham, and pt has made it clear he wants to return home. The patient has right sided heart failure, which is not expected to improve, among the other comorbidities. Attempting to reach CM to arrange a hospice plan. The patient has a full-time CG at home, and states he wants to "get out of here." Family are ok with as early as a sunday admit if it's possible (would have to be [place] over the weekend, as they are the only ones available).
[2024-05-30] MEDS ORDERED: Warfarin Sodium 2 MG Tab PO ONE (18:00)
--- NOTE | 2024-05-30 18:28 | NUR ---
SHIFT NOTE: PT WAS EXTREMELY SOMNOLENT, WOULD ONLY RESPOND TO PAINFUL STIMULI. MD NOTIFIED, THIS RN CONTINUED TO MONITOR CLOSELY. THE DAY PROGRESSED PT BECOME MORE AND MORE RESPONSIVE AND ALERT. PT REMAINS SLEEPY AND WILL FALL ASLEEP IN THE MIDDLE OF QUESTIONING. HE WAS ABLE TO COMMUNICATE PAIN AND A DESIRE TO GO HOME. PT ASSISTED TO CHAIR WITH 2P ASSIST FOR COMFORT. CHAIR ALARM ON. PT ABLE TO STATE HIS NAME AND . HE IS ON TELE IN AFIB WITH NO ACUTE EVENTS THIS SHFIT. 2L NC TITRATED TO ROOM AIR. PT RESPIRATIONS ARE EVEN AND UNLABORED. PT HAS A PUREWICK ON FOR INCONT AND FREQUENT VOIDS DUE TO DIURETICS. AM MEDS WHERE HELD DUE TO AN INABILITY TO FOLLOW COMMANDS. PT WAS ABLE TO TAKE PO MEDS WHOLE THIS EVENING. CODE STATUS CHANGED TO DNR, PLAN TO GO HOME ON HOSPICE WITH SON AND DIL. FAMILY HAS BEEN UPDATED ON PLAN OF CARE BY THIS RN, THE MD, AND PALLIATIVE CARE NURSE.
[2024-05-30 20:08] VITALS: BP 140/74
[2024-05-31 02:59] VITALS: BP 139/63
--- NOTE | 2024-05-31 04:35 | NUR ---
SHIFT SUMMARY NOC PT A/O TO NAME/. CONFUSED BUT COOPERATIVE WITH CARE. VSS. CHRONIC BACK/R HIP FX PAIN BEING MANAGED PER EMAR. PT WAS ON RA FOR FIRST FEW HOURS OF SHIFT, BUT ONCE ASLEEP DESATS INTO LOW 80'S SO 2L/NC REAPPLIED AND SPOT CHECK SPO2 >90%. PUREWICK IN PLACE FOR INCONTINENCE. ON TELE AFIB IN 90'S. PT AWAITING GOING HOME ON HOSPICE ONCE HOSPICE PROVIDER IS IDENTIFIED. PT CURRENTLY RESTING WITH BED ALARM ON, BED IN LOWEST POSIION, AND CALL LIGHT WITHIN REACH.
[2024-05-31 05:00] LABS: Prothrombin Time Results 20.3 Sec (9.7-11.5)
[2024-05-31 07:43] VITALS: BP 117/65
[2024-05-31] MEDS ORDERED: Carvedilol 3.125 MG Tab PO ONE (10:40)
[2024-05-31] MEDS ORDERED: OxyCODONE HCL 5 MG TAB PO PRN (10:55)
[2024-05-31 14:51] VITALS: BP 134/66
[2024-05-31] MEDS ORDERED: Warfarin Sodium 4 MG Tab PO SCH (18:00)
--- NOTE | 2024-05-31 18:20 | NUR ---
REPORT RECEIVED AND VERIFIED. PT UP IN CHAIR DID VERY WERLL TODAY MORE A/O AND ENGADED WITH CARE. FAMILY STRUGGLING AT THE TIME WITH IDEA THAT PT GOING HOME ON HOSPICE. FAMILY ENC BY THE FACT THAT HOSPICE WILL ALLOW MORE OPTIONS FOR MANAGMENT IN CARE. PURWIK IN PLACE AND PT STILL DIARESING WELL. VSS O2 ON FOR COMFORT ONLY BUT PT HAS BEEN DOING WELL WHEN REMOVED. PT STILL HAS STRENGTH TO TRANSFER WITH MINIMAL ASSIST AND FWW. PT MEDICATED WITH ROXANOL UNTIL IT WAS DCED, PT RETURNED BACK TO ORIGINAL MED AND PLAN IS TO USE MORE OFTEN AND INCREASE IF NEEDED .
--- NOTE | 2024-05-31 18:50 | NUR ---
RECEIVED BEDSIDE REPORT. PT VERY STEBBINS. ON RA. WILL CONTINUE TO PROVIDE CARE T/O SHIFT. CALL LT IN REACH.
[2024-05-31 19:22] VITALS: BP 128/75
--- NOTE | 2024-05-31 21:09 | NUR ---
PT TOOK MEDS WITHOUT DIFFICULTY WITH HOB AT 90 DEGREES. NO CHOKING OR COUGHING NOTED. AMBULATED WITH 2PA USING FWW AND GAIT BELT TO BATHROOM AND BACK TO BED. NO OTHER NEEDS AT THIS TIME. CALL LT IN REACH.
--- NOTE | 2024-05-31 22:15 | NUR ---
PT RESTING QUIETLY AT THIS TIME. CALL LT IN REACH.
--- NOTE | 2024-06-01 01:41 | NUR ---
REPOSITIONED PT FOR COMFORT. MED GIVEN FOR BACK PAIN. NO OTHER NEEDS. CALL LT IN REACH.
--- NOTE | 2024-06-01 04:10 | NUR ---
SHIFT SUMMARY: PT ALERT AND FEEDING SELF DINNER WITHOUT DIFFICULTY. NO SIGNS OF CHOKING OR COUGHING WHEN SWALLOWING. AMBULATES WITH 2PA, GAIT BELT AND USING THE FWW. PT ABLE TO WALK FROM BED TO BATHROOM. WAS ON RA WHILE AWAKE BUT REQUIRED 2L DURING SLEEP, SATS HAD DROPPED DOWN INTO MID 80'S, LESS AGITATED WITH THE OXYGEN. MEDICATED WITH OXY 5MG FOR BACK PAIN. MALE PURWICK IN PLACE DRAINING YELLOW URINE. ORIENTED TO SELF, VERY BEAVER. NO ACUTE CHANGES. WILL CONTINUE TO PROVIDE CARE UNTIL SHIFT REPORT TO ONCOMING NURSE. CALL LT IN REACH.
--- NOTE | 2024-06-01 04:41 | NUR ---
PT RESTING QUIETLY.
[2024-06-01 06:37] LABS: International Normalized Ratio 2.25; Prothrombin Time Results 22.7 Sec (9.7-11.5)
[2024-06-01] MEDS ORDERED: OxyCODONE HCL 5 MG TAB PO ONE (07:45)
[2024-06-01] MEDS ORDERED: OxyCODONE HCL 5 MG TAB PO PRN (12:05)
[2024-06-01] MEDS ORDERED: Potassium Chloride 10 Meq Tablet SA PO SCH (13:00)
[2024-06-01 15:14] VITALS: BP 124/62
[2024-06-01] MEDS ORDERED: Warfarin Sodium 2 MG Tab PO SCH (18:00)
[2024-06-01] MEDS ORDERED: Furosemide 20 MG Tab PO SCH (18:00)
--- NOTE | 2024-06-01 19:40 | NUR ---
pt was complaining of pain when i arrived, so additional med was given, pt seemed to be agitated all night but once pain managed he feel asleep until 1100. once awake pt was assited to chair and was able to feed self, pt did very well through remainder of day and at times was able to call for assistence to use bsc, pt is constipated so bowel prep was preformed. will cont to monitor.
[2024-06-01 19:42] VITALS: BP 112/64
[2024-06-01] MEDS ORDERED: QUEtiapine Fumarate 50 MG TAB PO SCH (21:00)
[2024-06-02 03:07] VITALS: BP 132/68
[2024-06-02 05:25] LABS: International Normalized Ratio 2.23; Prothrombin Time Results 22.5 Sec (9.7-11.5)
--- NOTE | 2024-06-02 06:15 | NUR ---
SHIFT SUMMARY AT START OF SHIFT, PT IN HIS RECLINER WATCHING TV. PT UP AND AMBULATING ASSISTED BY THIS RN AND REHABILITATION CLERK TO BED. AFTER EVENING MEDS, HE IS SLEEPING COMFORTABLY WITH TV ON. 0300, CHANGED AND REPOSITIONED PT WITH REHABILITATION CLERK. PT MOANED IN RESPONSE TO PHYSICAL STIMULI, WOULD NOT OPEN HIS EYES, AND WOULD NOT VERBALLY RESPOND TO REHABILITATION CLERK OR THIS RN. PT WAS DIFFICULT TO WAKE, AND WOULDN'T STAY AWAKE. 0540, PT UP TO BEDSIDE COMMODE TO HAVE BM. 2PA WITH FWW AND GB. PT WAS NOT ABLE TO HAVE BM THIS TIME. PT IS SITTING UP IN RECLINER, WATCHING TV.
[2024-06-02 07:38] VITALS: BP 125/65
[2024-06-02] MEDS ORDERED: Lidocaine 4% 1 Patch TOP ONE (10:30)
[2024-06-02] MEDS ORDERED: LORazepam 0.5 MG Tab PO PRN (15:20)
[2024-06-02] MEDS ORDERED: FURO20 PO (15:38)
[2024-06-02] MEDS ORDERED: CARV3.125 PO (15:39)
[2024-06-02] MEDS ORDERED: ACET250 PO (15:39)
[2024-06-02] MEDS ORDERED: OXYC5 PO (15:39)
[2024-06-02] MEDS ORDERED: MIRALAX11910 PO (15:40)
[2024-06-02] MEDS ORDERED: Seroquel Xr50 MG PO ×2 (15:40→15:41)
[2024-06-02] MEDS ORDERED: POTA10T PO (15:40)
[2024-06-02] MEDS ORDERED: LORA.5 PO (15:45)
[2024-06-02] MEDS ORDERED: Warfarin Sodium 4 MG Tab PO SCH (18:00)
--- NOTE | 2024-06-02 19:22 | NUR ---
home hospice. pt did better today and was able to follow commands, pt was medicated for pain per mar and heating pad. family took pt home after medications were sent to pharmacy. case managment secured safe transfer of care back to family
== END 2024-06-02 17:07 | disposition hospice, home (50) | DRG 917 ==
LOC: ER 01:18 → ERHOLD 01:19 → MEDS 12:08
PROVIDERS: Emergency Medicine; Family Medicine; Hospitalist; ADMIT Internal Medicine
DX: T40.2X1A Poisoning by other opioids, accidental (unintentional), initial encounter (principal); G92.8 Other toxic encephalopathy; J96.02 Acute respiratory failure with hypercapnia; S72.111A Displaced fracture of greater trochanter of right femur, initial encounter for closed fracture; I63.89 Other cerebral infarction; I50.32 Chronic diastolic (congestive) heart failure; E87.1 Hypo-osmolality and hyponatremia; I48.19 Other persistent atrial fibrillation; E87.3 Alkalosis; R18.8 Other ascites; M97.01XA Periprosthetic fracture around internal prosthetic right hip joint, initial encounter; I47.19 Other supraventricular tachycardia; I48.92 Unspecified atrial flutter; Z66 Do not resuscitate; E66.9 Obesity, unspecified; I11.0 Hypertensive heart disease with heart failure; I25.10 Atherosclerotic heart disease of native coronary artery without angina pectoris; M54.50 Low back pain, unspecified; G89.29 Other chronic pain; I73.9 Peripheral vascular disease, unspecified; E78.5 Hyperlipidemia, unspecified; Z96.651 Presence of right artificial knee joint; Z98.890 Other specified postprocedural states; Z79.899 Other long term (current) drug therapy; Z88.8 Allergy status to other drugs, medicaments and biological substances; Z95.2 Presence of prosthetic heart valve; Z90.49 Acquired absence of other specified parts of digestive tract; Z79.891 Long term (current) use of opiate analgesic; Z95.1 Presence of aortocoronary bypass graft; W18.30XA Fall on same level, unspecified, initial encounter; Z88.5 Allergy status to narcotic agent; Z88.1 Allergy status to other antibiotic agents; Z68.28 Body mass index [BMI] 28.0-28.9, adult
CPT/HCPCS: 0241U; 36415; 51701; 70450; 70551; 71045; 73502; 74176; 80048; 80053; 80320; 81001; 82803; 82947; 83605; 83880; 84484; 85025; 85610; 85730; 87040; 92526; 92610; 93005; 93010; 93306; 93922; 94762; 96374; 96376; 97110; 97162; 97166; 97530; 97535; 99285-25; A9270; G0378; G0480; J1940; J7030